=== PATIENT | female | born 1940 | race Caucasian/White ===

== ENCOUNTER 2017-07-15 10:52 | Emergency (ER) | payer OTHER, SELFPAY ==
[2017-07-15 10:54] VITALS: BP 150/51; PULSE 51; RESP 14; TEMP 37.1; O2SAT 98; BMI 39.6
--- NOTE | 2017-07-15 11:26 | ED.DCSUM_ITS ---
- ER Visit Summary Date of Service: 07/15/17 Chief Complaint: Nosebleed History of Present Illness: The patient is a 77 F who presents today with a nosebleed. It has been ongoing for couple of hours. She was recently started on Coumadin after an aortic valve replacement at the [facility]. This is her third episode of epistaxis in 3 days. She denies any trauma. No lightheadedness or dizziness. Physical Examination: Vital signs reviewed. HEENT exam reveals some bleeding from the left nares. It looks anterior. There is no trauma. No septal hematoma the rest the exam is unremarkable Test Results: INR was obtained and it was 2.1 Emergency Department Course and Treatment: Due to the amount of bleeding I immediately went to a 7.5 anterior Rhino Rocket. This was inflated and hemostasis was obtained with this. Treatment Plan: I will leave the Rhino Rocket in place. I will place her on Keflex. Patient will be given ENT follow-up for Rhino Rocket removal, or she can follow-up with her primary care physician. Disposition: Discharge Impression: Epistaxis This note was generated with [employer] dictation software. It may contain incorrect words, spelling, and punctuation that were not noted in review of the chart prior to signing ED Disposition - Plan for ED Patient: Chief Complaint: Nosebleed Referrals: Jarred Dominique MD [Primary Care Provider] -
[2017-07-15 12:13] LABS: International Normalized Ratio 2.1; Prothrombin Time (Protime)PT. 22.8 SECONDS (11.7-14.9)
--- NOTE | 2017-07-15 12:22 | ED.DEP ---
ED Disposition - Plan for ED Patient: Disposition: Home or Assisted Living Chief Complaint: Nosebleed Instructions: Nosebleed Prescriptions: Cephalexin [Keflex] 500 mg PO BID #10 cap Referrals: Jarred Dominique MD [Primary Care Provider] -
[2017-07-15 12:32] VITALS: BP 166/69; PULSE 59; RESP 16; O2SAT 96
--- NOTE | 2017-07-15 12:33 | ED.RN ---
REVIEWED D/C INSTRUCTIONS, FOLLOW UP CARE, PRESCRIPTION, AND S/S THAT WOULD WARRANT A RETURN TO ED WITH PT. PT VERBALIZED AN UNDERSTANDING AND DENIES FURTHER QUESTIONS FOR THIS RN. PT SKIN P/W/D, RESP EVEN AND UNLABORED, PT A&O X 3, NO DISTRESS NOTED. PT AMBULATED OUT OF ED, GAIT STEADY.
== END 2017-07-15 12:34 | disposition home or self-care (01) ==
PROVIDERS: Emergency Provider Emergency Medicine; Family Provider Family Medicine; PCP Family Medicine
DX: R04.0 Epistaxis (principal); Z95.2 Presence of prosthetic heart valve; Z79.01 Long term (current) use of anticoagulants; I11.0 Hypertensive heart disease with heart failure; I50.9 Heart failure, unspecified; Z79.82 Long term (current) use of aspirin; Z79.899 Other long term (current) drug therapy
CPT/HCPCS: 30903; 36415; 85610; 99282

== ENCOUNTER → 2019-03-14 08:22 | Outpatient (CLI) | payer OTHER, SELFPAY ==
[2019-02-23 08:38] VITALS: BMI 35.2
--- NOTE | 2019-03-14 08:24 | ECHOD_ITS ---
Reason For Study: Valve Replacement Eval Procedure This was a 2D Doppler, Color Flow transthoracic echocardiogram. Exam performed in department. Left Ventricle Normal LV size. Left ventricular systolic function is normal. The estimated ejection fraction is 45 %. Stage 1 diastolic dysfunction. No regional wall motion abnormalities noted. Right Ventricle Normal RV size. Normal systolic function. Atria Normal left atrium. Normal right atrium. Bubble contrast study negative for right to left interatrial shunt. Mitral Valve There is moderate to severe mitral annular calcification. Mild (1+) eccentric mitral valve insufficiency. Tricuspid Valve Normal tricuspid valve. Trivial tricuspid valve insufficiency. Aortic Valve Peak aortic valve gradient 33 mmHg. Mean aortic valve gradient 17 mmHg. Mild aortic stenosis. Bioprosthetic aortic valve. Great Vessels Normal aortic root. The pulmonary artery is normal size. Normal inferior vena cava. Pericardium/Pleural No pericardial effusion. Medication Performed a rapid injection of agitated mix of 9 cc saline and 1cc air to assess for atrial septal defect. MMode/2D Measurements & Calculations LVIDd: 4.7 cm IVSd: 1.1 cm LVOT diam: 1.8 cm LVIDs: 3.0 cm LVPWd: 0.85 cm LVOT area: 2.5 cm2 RVDd: 3.5 cm FS: 35.5 % Ao root diam: 3.3 cm LAV(MOD-bp): 58.1 ml LVAd ap4: 23.1 cm2 LAV(MOD-bp) Indexed: 30.1 ml/m2 EDV(MOD-sp4): 64.7 ml LAV(MOD-sp2): 51.1 ml EDV(sp4-el): 65.9 ml LAV(MOD-sp4): 63.8 ml LVAs ap4: 12.6 cm2 ESV(MOD-sp4): 24.5 ml ESV(sp4-el): 24.3 ml EF(MOD-sp4): 62.2 % EF(sp4-el): 63.2 % SV(MOD-sp4): 40.3 ml SV(sp4-el): 41.7 ml LA A4 area: 21.3 cm2 LA dimension(2D): 4.2 cm RA A4 area: 17.6 cm2 Doppler Measurements & Calculations MV E max vaibhav: 101.9 cm/sec Lat Peak E' Vaibhav: 6.9 cm/sec Med Peak E' Vaibhav: 4.5 cm/sec MV A max vaibhav: 125.6 cm/sec E/E' lat: 14.8 E/E' med: 22.9 MV E/A: 0.81 Ao V2 max: 290.4 cm/sec LV V1 max: 141.7 cm/sec SV(LVOT): 78.8 ml Ao max P.7 mmHg LV V1 max P.0 mmHg Ao V2 mean: 195.1 cm/sec LV V1 mean P.4 mmHg Ao mean P.2 mmHg LV V1 mean: 98.1 cm/sec Ao V2 VTI: 65.7 cm LV V1 VTI: 31.0 cm TONY(I,D): 1.2 cm2 TONY(V,D): 1.2 cm2 PA V2 max: 118.5 cm/sec TR max vaibhav: 233.5 cm/sec TR max P.8 mmHg Interpretation Summary Normal LV size. Left ventricular systolic function is normal. The estimated ejection fraction is 45 %. Stage 1 diastolic dysfunction. Bubble contrast study negative for right to left interatrial shunt. Bioprosthetic aortic valve. Mean aortic valve gradient 17 mmHg. Mild aortic stenosis. Ordering Physician: Jai Vega Referring Physician: Jarred Dominique Performed By: Iva Perez, GABBY, RVT
== END ==
PROVIDERS: Family Provider Family Medicine; PCP Family Medicine; Referring Provider Internal Medicine Cardiovascular Disease; Visit Provider Internal Medicine Cardiovascular Disease
DX: Z95.2 Presence of prosthetic heart valve (principal)
CPT/HCPCS: 93306; A4216

== ENCOUNTER → 2021-05-30 05:49 | Outpatient (CLI) | payer SELFPAY, OTHER ==
--- NOTE | 2021-05-30 06:05 | ECHOD_ITS ---
Version 2 Reason For Study: SOB Procedure This was a 2D Doppler, Color Flow transthoracic echocardiogram. Exam performed in department. Left Ventricle Normal LV size. Left ventricular systolic function is normal. The estimated ejection fraction is 65 %. Stage 1 diastolic dysfunction. No regional wall motion abnormalities noted. Right Ventricle Normal RV size. Normal systolic function. Atria The left atrium is mildly enlarged. Normal right atrium. Mitral Valve There is mild to moderate mitral annular calcification. Tricuspid Valve Normal tricuspid valve. Mild tricuspid valve insufficiency. Pulmonary artery systolic pressure is 25 mmHg. Aortic Valve Normal aortic valve. Trisinus/trileaflet aortic valve. Bioprosthetic aortic valve. Pulmonic Valve Normal pulmonic valve. Great Vessels Normal aortic root. The pulmonary artery is normal size. Normal inferior vena cava. Pericardium/Pleural No pericardial effusion. MMode/2D Measurements & Calculations LVIDd: 4.0 cm IVSd: 1.00 cm LVOT diam: 1.8 cm LVIDs: 2.8 cm LVPWd: 1.1 cm LVOT area: 2.4 cm2 RVDd: 3.2 cm FS: 31.8 % Ao root diam: 3.1 cm LAV(MOD-bp): 77.1 ml LVAd ap4: 27.6 cm2 LAV(MOD-bp) Indexed: 40.5 ml/m2 LVLd ap4: 7.1 cm LAV(MOD-sp2): 75.6 ml EDV(MOD-sp4): 90.8 ml LAV(MOD-sp4): 79.8 ml EDV(sp4-el): 90.6 ml LVAs ap4: 14.9 cm2 LVLs ap4: 6.1 cm ESV(MOD-sp4): 33.8 ml ESV(sp4-el): 30.8 ml EF(MOD-sp4): 62.7 % EF(sp4-el): 66.0 % SV(MOD-sp4): 57.0 ml SV(sp4-el): 59.8 ml LA A4 area: 23.9 cm2 LA dimension(2D): 4.2 cm RA A4 area: 15.0 cm2 Doppler Measurements & Calculations MV E max vaibhav: 103.6 cm/sec Lat Peak E' Vaibhav: 6.7 cm/sec Med Peak E' Vaibhav: 5.5 cm/sec MV A max vaibhav: 136.0 cm/sec E/E' lat: 15.4 E/E' med: 18.9 MV E/A: 0.76 MV V2 max: 157.2 cm/sec MV P1/2t max vaibhav: 121.2 cm/sec Ao V2 max: 265.2 cm/sec MV max P.9 mmHg MV P1/2t: 105.0 msec Ao max P.2 mmHg MV V2 mean: 88.9 cm/sec Ao V2 mean: 172.2 cm/sec MV mean P.6 mmHg MV dec slope: 338.1 cm/sec2 Ao mean P.5 mmHg MV V2 VTI: 45.6 cm MVA(P1/2t): 2.1 cm2 Ao V2 VTI: 55.9 cm MVA(VTI): 1.6 cm2 TONY(I,D): 1.3 cm2 TONY(V,D): 1.2 cm2 LV V1 max: 128.0 cm/sec SV(LVOT): 71.9 ml PA V2 max: 125.0 cm/sec LV V1 max P.6 mmHg LV V1 mean P.8 mmHg LV V1 mean: 92.6 cm/sec LV V1 VTI: 29.8 cm TR max vaibhav: 225.6 cm/sec TR max P.4 mmHg ECHO/Echo Complete Interpretation Summary Normal LV size. Left ventricular systolic function is normal. The estimated ejection fraction is 65 %. Stage 1 diastolic dysfunction. The left atrium is mildly enlarged. Compared to previous study, the left ventricular systolic function has improved .. Ordering Physician: Regi Hammonds/Jai Vega Referring Physician: Regi Hammonds Performed By: Annia Leyva RDCS
--- NOTE | 2021-05-30 18:47 | STRESSREP ---
Stress Test Report Exercise myocardial perfusion stress test. 80-year-old lady with a history of chest pain. Stress protocol: Resting EKG demonstrates sinus bradycardia with a rate of 59 bpm normal intervals are noted resting blood pressure is 138/70 mmHg. Patient exercised according to regular Kvng protocol for 3 minutes and 15 seconds the maximum heart rate attained was 139 bpm which was 97% of maximum predicted heart rate the maximum workload was 5.2 metabolic equivalents. The patient maintained sinus rhythm throughout the recording. At rest there were no ST or T wave changes noted suggest ischemia and at peak exercise upsloping ST changes were noted with did not meet the criteria for ischemia. No clinical angina was noted. The resting blood pressure was 138/70 with a peak blood pressure 198/62 mmHg. The patient did not experience any symptoms other than shortness of breath. Myocardial perfusion protocol. 11.4 mCi of technetium 99m sestamibi was injected at rest. The patient exercised according to regular Kvng protocol for total duration of 3 minutes and 15 seconds. At peak exercise 33.9 mCi of technetium 99m sestamibi was injected after. Stress and rest images were reconstructed in comparing the short axis vertical long and horizontal long axis. Gated images were also obtained. Perfusion SPECT analysis: Review of the stress images demonstrate normal uptake of tracer noted in all areas of the myocardium. The resting images similarly demonstrate normal uptake of tracer noted in all areas of the myocardium. No areas of reversibility are noted to suggest ischemia and no previous infarct noted. Gated SPECT analysis: The gated ejection fraction is 72%. Conclusion: Normal exercise myocardial perfusion stress test after low to moderate workload. Preserved ejection fraction
== END ==
PROVIDERS: PCP Family Medicine; Referring Provider Physician Assistant Medical; Visit Provider Physician Assistant Medical
DX: R07.9 Chest pain, unspecified (principal); R06.02 Shortness of breath; I42.8 Other cardiomyopathies; I10 Essential (primary) hypertension; Z95.2 Presence of prosthetic heart valve
CPT/HCPCS: 78452; 93017; 93306; A9500; A4216

== ENCOUNTER → 2024-01-14 | Outpatient (CLI) | payer SELFPAY, OTHER ==
--- NOTE | 2024-01-14 09:54 | CDU_ITS ---
Reason For Study: Retinal Artery occlusion Rt. Velocities/BP Lt. Velocities/BP Prox CCA 62.0/6.2 cm/sec. Prox CCA 86.7/20.4 cm/sec. Mid CCA 72.4/14.7 cm/sec. Mid CCA 81.8/15.5 cm/sec. Dist CCA 73.2/15.5 cm/sec. Dist CCA 54.8/14.2 cm/sec. Prox ICA 100.2/33.9 cm/sec. Prox ICA 79.3/20.4 cm/sec. Mid ICA 101.4/32.7 cm/sec. Mid ICA 101.4/29.0 cm/sec. Dist ICA 84.3/28.2 cm/sec. Dist ICA 92.8/30.2 cm/sec. Rt. ICA/CCA = 1.4. Lt. ICA/CCA = 1.2. Prox ECA 279.9/24.6 cm/sec. Prox ECA 99.0/11.8 cm/sec. Rt. Vert. 33.9/8.3 cm/sec. Lt. Vert. 44.9/10.6 cm/sec. Right Extracranial There is intimal thickening but no significant atherosclerotic plaque noted in the right common carotid artery. Anechoic non-vascularized structure measuring approximately 1.71cm x 0.87cm noted in Rt Thyroid. There is heterogeneous, irregular atherosclerotic plaque noted in the right internal carotid artery. There is heterogeneous, irregular atherosclerotic plaque noted in the right external carotid artery. Antegrade flow is noted in the right vertebral artery. Left Extracranial There is homogeneous, smooth atherosclerotic plaque noted in the left common carotid artery. There is heterogeneous, irregular atherosclerotic plaque noted in the left internal carotid artery. There is heterogeneous, irregular atherosclerotic plaque noted in the left external carotid artery. Antegrade flow is noted in the left vertebral artery. Procedure Carotid Duplex 80077. This is a Carotid Duplex examination using B-mode, color flow and specral Doppler. The exam was diagnostic. Exam performed in department. VL/Carotid Duplex Ultrasound Interpretation Summary Mild (<50%) stenosis right extracranial internal carotid. Mild (<50%) stenosis left extracranial internal carotid. Patent and antegrade vertebrals bilaterally. Anechoic non-vascularized structure measuring approximately 1.71cm x 0.87cm not ed in right thyroid Ordering Physician: Arsalan Abdullahi Referring Physician: Jarred Dominique Performed By: Rome Cm RVT
== END | disposition home or self-care (01) ==
PROVIDERS: PCP Family Medicine; Referring Provider Ophthalmology; Visit Provider Ophthalmology
DX: H34.211 Partial retinal artery occlusion, right eye (principal)
CPT/HCPCS: 93880

== ENCOUNTER → 2024-02-29 | Outpatient (CLI) | payer SELFPAY, OTHER ==
--- NOTE | 2024-02-29 12:34 | US_ITS ---
EXAM: US SOFT TISSUES HEAD AND NECK, THYROID CLINICAL INDICATION: thyroid cyst seen on carotid exam TECHNIQUE: Greyscale and color doppler imaging was performed of the thyroid gland. COMPARISON: Carotid ultrasound, 01/14/2024. FINDINGS: LEFT THYROID LOBE: The left thyroid lobe measures 4.9 x 1.4 x 1.4 cm. Homogeneous echotexture with normal vascularity. No thyroid nodules are present. RIGHT THYROID LOBE: The right thyroid lobe measures 5.2 x 2.2 x 2.0 cm. Right mid thyroid lobe cyst measuring 1.5 cm. 1.0 cm nodule in the right thyroid lobe. This nodule is solid or almost completely solid, hypoechoic, [id number], ill-defined and contains no echogenic foci. TI-RADS points: 4. TI-RADS category: TR4. This nodule is moderately suspicious. Recommend follow-up thyroid ultrasounds at 1, 2, 3 and 5 years. Spongiform nodule measuring 5 mm in the right upper thyroid lobe. ISTHMUS: No significant abnormality. No thyroid nodules are present. The thyroid isthmus measures 0.3 cm. US/Thyroid IMPRESSION: 1 cm right thyroid nodule. No FNA is recommended at this time. Recommend follow-up ultrasound in 1, 2, 3, and 5 years. Electronically Signed: Kale Marshall DO at 21:41 EDT ,
--- NOTE | 2024-02-29 12:34 | ECHOD_ITS ---
Reason For Study: PROSTHETIC HEART VALVE Procedure This was a 2D Doppler, Color Flow transthoracic echocardiogram. Exam performed in department. Left Ventricle Normal LV size. Left ventricular systolic function is normal. The left ventricular ejection fraction is 70 %. No regional wall motion abnormalities noted. Right Ventricle Normal RV size. Normal systolic function. Atria The left atrium is mildly enlarged. Normal right atrium. Mitral Valve Normal mitral valve. Tricuspid Valve Normal tricuspid valve. Mild (1+) tricuspid valve insufficiency. Pulmonary artery systolic pressure is 25 mmHg. Aortic Valve Peak aortic valve gradient 26 mmHg. Mean aortic valve gradient 14 mmHg. Bioprosthetic aortic valve functioning normally. Pulmonic Valve Normal pulmonic valve. Great Vessels Normal aortic root. The pulmonary artery is normal size. Normal inferior vena cava. Pericardium/Pleural No pericardial effusion. MMode/2D Measurements & Calculations LVIDd: 4.7 cm IVSd: 0.98 cm LVOT diam: 1.8 cm LVIDs: 2.5 cm LVPWd: 1.2 cm LVOT area: 2.7 cm2 RVDd: 2.8 cm FS: 47.1 % LAV(MOD-bp): 81.3 ml LVAd ap4: 24.9 cm2 SV(MOD-sp4): 52.2 ml LAV(MOD-bp) Indexed: 43.8 ml/m2 LVLd ap4: 6.9 cm LAV(MOD-sp2): 79.3 ml EDV(MOD-sp4): 75.0 ml LAV(MOD-sp4): 73.4 ml EDV(sp4-el): 76.1 ml LVAs ap4: 12.4 cm2 LVLs ap4: 5.7 cm ESV(MOD-sp4): 22.8 ml ESV(sp4-el): 23.0 ml EF(MOD-sp4): 69.6 % EF(sp4-el): 69.8 % SV(sp4-el): 53.1 ml LA A4 area: 22.9 cm2 LA dimension(2D): 4.3 cm RA A4 area: 17.3 cm2 Time Measurements MV dec time: 0.54 sec Doppler Measurements & Calculations MV E max vaibhav: 109.3 cm/sec Lat Peak E' Vaibhav: 14.2 cm/sec Med Peak E' Vaibhav: 6.3 cm/sec MV A max vaibhav: 139.7 cm/sec E/E' lat: 7.7 E/E' med: 17.5 MV E/A: 0.78 MV V2 max: 177.1 cm/sec Ao V2 max: 257.4 cm/sec MV max P.6 mmHg MV dec slope: 208.6 cm/sec2 Ao max P.5 mmHg MV V2 mean: 91.4 cm/sec Ao V2 mean: 175.7 cm/sec MV mean P.0 mmHg Ao mean P.4 mmHg MV V2 VTI: 58.3 cm Ao V2 VTI: 58.8 cm AV (velocity ratio): 0.72 MVA(VTI): 2.0 cm2 TONY(I,D): 1.9 cm2 TONY(V,D): 1.8 cm2 LV V1 max: 170.0 cm/sec SV(LVOT): 114.2 ml PA V2 max: 137.1 cm/sec LV V1 max P.6 mmHg PA V2 mean: 85.7 cm/sec LV V1 mean P.3 mmHg LV V1 mean: 128.3 cm/sec LV V1 VTI: 42.6 cm PI end-d vaibhav: 105.3 cm/sec TR max vabihav: 230.6 cm/sec TR max P.3 mmHg ECHO/Echo Complete Interpretation Summary Normal LV size. Left ventricular systolic function is normal. The left ventricular ejection fraction is 70 %. Bioprosthetic aortic valve functioning normally. Mean aortic valve gradient 14 mmHg. Ordering Physician: Regi Hammonds Referring Physician: Regi Hammonds Performed By: Katherine Chau RCS
== END | disposition home or self-care (01) ==
PROVIDERS: PCP Family Medicine; Referring Provider Physician Assistant Medical; Visit Provider Physician Assistant Medical
DX: E04.1 Nontoxic single thyroid nodule (principal); Z95.2 Presence of prosthetic heart valve
CPT/HCPCS: 76536; 93306

== ENCOUNTER → 2025-05-03 | Outpatient (CLI) | payer SELFPAY, OTHER ==
--- NOTE | 2025-05-03 06:23 | ECHOD_ITS ---
Reason For Study Reason For Study: PROSTHETIC HEART VALVE (av) Procedure This was a 2D Doppler, Color Flow transthoracic echocardiogram. Exam performed in department. Left Ventricle Normal LV size. Left ventricular systolic function is normal. The estimated ejection fraction is 50 %. No regional wall motion abnormalities noted. Right Ventricle Normal RV size. Normal systolic function. Atria Normal left atrium. Normal right atrium. Mitral Valve Normal mitral valve. Tricuspid Valve Normal tricuspid valve. Mild (1+) tricuspid valve insufficiency. Pulmonary artery systolic pressure is 25 mmHg. Aortic Valve Peak aortic valve gradient 29 mmHg. Mean aortic valve gradient 15 mmHg. Bioprosthetic aortic valve. Pulmonic Valve Normal pulmonic valve. Great Vessels Normal aortic root. The pulmonary artery is normal size. Inferior vena cava collapse with respiration. Pericardium/Pleural No pericardial effusion. MMode/2D Measurements & Calculations LVIDd: 4.6 cm IVSd: 1.0 cm LVOT diam: 1.8 cm LVIDs: 3.2 cm LVPWd: 1.0 cm LVOT area: 2.6 cm2 RVDd: 2.9 cm FS: 30.9 % Ao root diam: 2.8 cm LAV(MOD-bp): 63.8 ml LVAd ap4: 26.8 cm2 LAV(MOD-bp) Indexed: 35.5 ml/m2 LVLd ap4: 7.3 cm LAV(MOD-sp2): 75.6 ml EDV(MOD-sp4): 82.7 ml LAV(MOD-sp4): 49.2 ml EDV(sp4-el): 83.5 ml LVAs ap4: 17.1 cm2 LVLs ap4: 5.8 cm ESV(MOD-sp4): 43.8 ml ESV(sp4-el): 42.7 ml EF(MOD-sp4): 47.0 % EF(sp4-el): 48.9 % LVAd ap2: 24.6 cm2 SV(MOD-sp4): 38.8 ml SV(MOD-sp2): 35.3 ml LVLd ap2: 7.1 cm SI(MOD-sp4): 21.6 ml/m2 SI(MOD-sp2): 19.6 ml/m2 EDV(MOD-sp2): 73.0 ml EDV(sp2-el): 72.9 ml LVAs ap2: 17.3 cm2 LVLs ap2: 6.4 cm ESV(MOD-sp2): 37.8 ml ESV(sp2-el): 39.4 ml EF(MOD-sp2): 48.3 % SV(sp4-el): 40.8 ml LA dimension(2D): 4.1 cm LA A4 area: 17.4 cm2 RA A4 area: 13.5 cm2 TAPSE: 1.8 cm Time Measurements MV dec time: 0.33 sec Doppler Measurements & Calculations MV E max vaibhav: 144.3 cm/sec Lat Peak E' Vaibhav: 15.6 cm/sec Med Peak E' Vaibhav: 4.9 cm/sec MV A max vaibhav: 135.9 cm/sec E/E' lat: 9.3 E/E' med: 29.4 MV E/A: 1.1 MV V2 max: 175.1 cm/sec MV P1/2t max vaibhav: 155.8 cm/sec Ao V2 max: 272.2 cm/sec MV max P.4 mmHg MV P1/2t: 95.6 msec Ao max P.8 mmHg MV V2 mean: 91.3 cm/sec Ao V2 mean: 186.3 cm/sec MV mean P.0 mmHg MV dec slope: 477.6 cm/sec2 Ao mean P.4 mmHg MV V2 VTI: 60.6 cm MVA(P1/2t): 2.3 cm2 Ao V2 VTI: 66.3 cm AV (velocity ratio): 0.65 MVA(VTI): 1.9 cm2 TONY(I,D): 1.7 cm2 TONY(V,D): 1.6 cm2 LV V1 max: 165.7 cm/sec MR max vaibhav: 578.9 cm/sec SV(LVOT): 112.5 ml LV V1 max P.0 mmHg MR max P.1 mmHg LV V1 mean P.2 mmHg LV V1 mean: 118.1 cm/sec LV V1 VTI: 42.9 cm PA V2 max: 119.7 cm/sec PI dec slope: 106.0 cm/sec2 TR max vaibhav: 222.8 cm/sec TR max P.5 mmHg ECHO/Echo Complete Interpretation Summary Normal LV size. Left ventricular systolic function is normal. The estimated ejection fraction is 50 %. Mean aortic valve gradient 15 mmHg. Bioprosthetic aortic valve. Ordering Physician: Tara Ruiz Referring Physician: Daisy Clark Performed By: Odalis Colon RDCS, RVT
--- OUTSIDE RECORDS SUMMARY | 2025-05-03 06:25 | XMS RPT_ITS | CCD ---
Author Organization [facility] Care Team Providers Care Principal Software Engineer Name Role Phone MAN, ZORA E Unavailable Unavailable MAN, ZORA E Unavailable Unavailable MAN, ZORA E Unavailable Unavailable JARRED DOMINIQUE WINCIL Unavailable Unavailable MAN, ZORA E Unavailable Unavailable MAN, ZORA E Unavailable Unavailable MAN, ZORA E Unavailable Unavailable MAN, ZORA E Unavailable Unavailable MAN, ZORA E Unavailable Unavailable MAN, ZORA E Unavailable Unavailable MAN, ZORA Unavailable Unavailable IMCA Unavailable Unavailable MAN, ZORA Unavailable Unavailable MAN, ZORA Unavailable Unavailable MAN, ZORA Unavailable Unavailable MAN, ZORA Unavailable Unavailable IMCA Unavailable Unavailable MAN, ZORA Unavailable Unavailable MAN, ZORA Unavailable Unavailable IMCA Unavailable Unavailable MAN, ZORA Unavailable Unavailable MAN, ZORA Unavailable Unavailable Jarred Dominique DO Primary Care Provider Julia Martin MD Unavailable [phone] JARRED DOMINIQUE Primary Care Unavailable LUIS FERNANDO CALIX Referring Unavailable JARRED DOMINIQUE Primary Care Unavailable LUIS FERNANDO CALIX Attending Unavailable Eduardo RENDON, Daisy Valencia Referring Unavailkeon Clark NP, Daisy Valencia Primary Care Unavailkeon Ruiz NP, Tara Attending Unavailable Silvia, [place] Attending Unavailable Jarred Dominique Referring Unavailable Jarred Dominique Primary Care Unavailable Joseph RENDON, Tara Attending Unavailable Eduardo RENDON, Daisy Valencia Primary Care UnavailTara Felix NP Referring Unavailable Allergies Allergy Classification Reported Allergen(s) Allergy Type Date of Onset Reaction(s) Facility (6 sources) Adhesive Tape; Translations: [ADHESIVE TAPE (ROSINS)] Propensity to adverse reactions (disorder) 8 Rash [facility] Repository (2 sources) NO KNOWN ALLERGIES; Translations: [NO KNOWN ALLERGIES] Propensity to adverse reactions to drug (disorder) [facility] Repository (1 source) Adhesive Tape Drug allergy (disorder) [facility] Repository Medications Current Medications Medication Drug Class(es) Dates Sig (Normalized) Sig (Original) acetaminophen 325 mg oral tablet (1 source) Start: 07-02-2017 End: 12-09-2024 take 2 tablets by mouth every four hours as needed acetaminophen (TYLENOL) 325 mg tablet Take 2 tablets by mouth every 4 hours as needed (for mild pain. Do not exceed more than 3000mg of Tylenol in a 24 hour period.). 07/02/2017 12/09/2024 Discontinued Aloe Vera gel (3 sources) Aloe Vera gel Apply 1 application to affected area once daily. Active aspirin 81 mg delayed release oral tablet (3 sources) Platelet Aggregation Inhibitor, Nonsteroidal Anti-inflammatory Drug Start: 10-28-2017 take 1 tablet by mouth once daily aspirin, enteric coated (ASPIR-LOW) 81 mg EC tablet Take 1 tablet by mouth once daily. 10/28/2017 Active cephalexin 500 mg oral capsule (2 sources) Cephalosporin Antibacterial Start: 12-09-2024 End: 12-14-2024 take 1 capsule by mouth four times daily cephALEXin (KEFLEX) 500 mg capsule Indications: Avulsion of skin of index finger without complication, initial encounter Take 1 capsule by mouth four times daily for 5 days. 20 capsule 12/09/2024 12/14/2024 Active docusate sodium 50 mg / sennosides, shelter 8.6 mg oral tablet (1 source) Start: 07-02-2017 End: 12-09-2024 take 1 tablet by mouth every twelve hours as needed senna-docusate (SENNA-S) 8.6-50 mg per tablet Take 1 tablet by mouth twice daily as needed for Constipation. 07/02/2017 12/09/2024 Discontinued lisinopril 5 mg oral tablet (3 sources) Angiotensin Converting Enzyme Inhibitor Start: 05-04-2018 take 1 tablet by mouth once daily lisinopril (ZESTRIL, PRINIVIL) 5 mg tablet Take 1 tablet by mouth once daily. 90 tablet 3 05/04/2018 Active osmotic 24 hr metFORMIN hydrochloride 500 mg extended release oral tablet (3 sources) Biguanide take 1 tablet by mouth once daily at breakfast metFORMIN ER (FORTAMET) 500 mg 24 hr tablet Take 500 mg by mouth daily with breakfast. Active Multivitamin capsule (3 sources) take 1 capsule by mouth once daily Multivitamin capsule Take 1 capsule by mouth once daily. Active SITagliptin 100 mg oral tablet (1 source) Dipeptidyl Peptidase 4 Inhibitor Start: 07-03-2017 End: 12-09-2024 take 1 tablet by mouth once daily sitaGLIPtin (JANUVIA) 100 mg tablet Take 1 tablet by mouth once daily. 30 tablet 1 07/03/2017 12/09/2024 Discontinued Completed/Discontinued Medications Medication Drug Class(es) Dates Sig (Normalized) Sig (Original) Lidocaine (2 sources) Antiarrhythmic, Amide Local Anesthetic Start: 12-09-2024 End: 12-09-2024 lidocaine 20 mg/mL (2 %) 60 mg injection (XYLOCAINE) Start: 12-09-2024 End: 12-09-2024 60 mg, INTRADERMAL, ONCE, 1 dose, Starting on Thu12/09/24 at 0928, Until Thu12/09/24 at 0928 Problems Active Problems Problem Classification Problem Date Documented Da te Episodic/Chronic Cardiac dysrhythmias (7 sources) Paroxysmal atrial fibrillation; Translations: [Paroxysmal atrial fibrillation] Onset: 2017 Resolved: 06-30-2017 07-02-2017 Chronic Heart valve disorders (8 sources) Presence of prosthetic heart valve; Translations: [Nonrheumatic aortic (valve) stenosis] Onset: 04-16-2017 07-02-2017 Chronic Occlusion or stenosis of precerebral arteries (1 source) Occlusion and stenosis of unspecified carotid artery; Translations: [Occlusion and stenosis of unspecified carotid artery] Onset: 05-25-2017 Chronic Open wounds of extremities (5 sources) Avulsion of skin; Translations: [Unspecified open wound of other finger without damage to nail, initial encounter] Onset: 12-10-2024 12-09-2024 Episodic Other nutritional; endocrine; and metabolic disorders (3 sources) Body mass index 40+ - severely obese; Translations: [Obesity, Class III, BMI 40-49.9 (morbid obesity)] Onset: 06-25-2017 07-01-2017 Chronic Unclassified (1 source) Unknown / UNK(Unknown) Onset: 04-16-2017 Past or Other Problems Problem Classification Problem Date Documented Date Episodic/Chronic Administrative/social admission (3 sources) Discharge status; Translations: [Other problems related to medical facilities and other health care] Onset: 06-25-2017 07-02-2017 Episodic Complications of surgical procedures or medical care (3 sources) Postoperative hypertension; Translations: [Postprocedural hypertension] Onset: 06-27-2017 07-02-2017 Episodic Diabetes mellitus without complication (3 sources) Metabolic stress hyperglycemia; Translations: [Hyperglycemia, unspecified] Onset: 06-26-2017 07-02-2017 Episodic Fluid and electrolyte disorders (3 sources) Hypervolemia; Translations: [Fluid overload, unspecified] Onset: 06-27-2017 07-02-2017 Episodic Other lower respiratory disease (1 source) Other forms of dyspnea; Translations: [Other forms of dyspnea] Onset: 04-16-2017 Episodic Pleurisy; pneumothorax; pulmonary collapse (3 sources) Atelectasis; Translations: [Atelectasis] Onset: 06-27-2017 Resolved: 07-01-2017 07-01-2017 Episodic Residual codes; unclassified (3 sources) Transition of care; Translations: [Other specified health status] Onset: 06-30-2017 07-02-2017 Episodic Results Test Name Value Interpretation Reference Range Facility Cardiology Visit Reporton Cardiology Visit Report [facility] [address] [place] [address]. [address] [place] [address] OFFICE VISIT Date of Service: 04/10/25 MR#: [id number] Acct: [id number] Name: CIERA WELLS Rep #: [id number] : 1940 Provider: JOSE vaca Age/Sex: 84/F Location: [facility] Status: Signed HPI HPI History of Present Illness Details: Ciera Wells is an 84-year-old lady who presents to the office today for a cardiovascular follow-up visit. She has a history of aortic stenosis, status post aortic valve replacement with a #21 Nicola Dueñas valve at the [facility] in June 2017, a short episode of postop atrial fibrillation and hypertension. She did undergo a stress test in May 2021 with no evidence of ischemia at a moderate workload of 5.2 metabolic equivalents. An echocardiogram performed at that same time demonstrated an ejection fraction of 65% with no wall motion abnormalities noted. Aortic valve prosthesis was noted to be stable. From a cardiac standpoint, the patient is doing well. She denies any palpitations, chest pain, pressure or heaviness. She denies SOB, Orthopnea, and PND. She does not have bleeding issues; no blood in urine, stool, or nosebleeds. She denies any decrease in energy level, myalgias, or claudication. She does not have edema, or sudden weight gain. She denies lightheadedness, dizziness, syncopal or near syncopal episodes, and headaches. Intake Vital Signs 02/15/24 08:30 04/10/25 07:40 Height 5 ft 3 in 5 ft 3 in Weight: 168 lb BMI 29.7 BP 135/72 H Blood Pressure Location Lt brachial Position Sitting Respiration 18 Pulse 56 L Pulse Source Monitor Pulse Oximetry (%) 98 Intake Visit Reasons: 1 Y FU Police Crime Scene Technician Required: No Is patient in pain?: No Allergies adhesive tape (tape) Allergy (Verified 04/10/25 13:46) Rash Medications ???Medication ???Instructions ???Recorded ???Confirmed ???Type garlic 1,000 mg capsule 1,000 mg PO QPC 02/23/19 04/10/25 History vitamin A-vitamin C-vit E-min 1 tab PO DAILY 02/23/19 04/10/25 H istory tablet Blood Pressure Health PO DAILY 05/16/20 04/10/25 History cholecalciferol (vitamin D3) 25 25 mcg PO DAILY 05/16/20 04/10/25 History mcg (1,000 unit) capsule zinc 50 mg tablet 50 mg PO DAILY 05/16/20 04/10/25 H istory aspirin 81 mg tablet,delayed 81 mg PO DAILY 05/15/21 04/10/25 H istory release (Adult Aspirin Regimen) lisinopril 20 mg tablet 20 mg PO DAILY 02/18/22 04/10/25 H istory metformin 500 mg tablet 500 mg PO QDAY 02/15/24 04/10/25 H istory Ejection fraction %: 70 Have you fallen in the past year?: Yes PFSH Medical History Non-ischemic cardiomyopathy Bleeding nose Type 2 diabetes mellitus Obesity Essential (primary) hypertension Postoperative atrial fibrillation (06/2017) Non-rheumatic aortic stenosis Surgical History History of left heart catheterization (05/14/17) H/O aortic valve replacement (06/26/17) Social History Smoking Status: Never smoker ROS Const Const: Negative for fatigue, weakness, headache(s) or frequent falls Eyes Eyes: Negative for blurry vision ENT ENT: Negative for headache(s), dizziness or Nosebleed/epistaxis Cardio Chest Pain: No Palpitations: No Edema: None Muscle aches with walking: None Resp Respiratory: Negative for SOB with activity, SOB at rest or SOB orthopnea SOB lying down GI GI: Negative nausea, vomiting, heartburn, bright, red blood in stools or black,tarry stools : Negative for hematuria Neuro Neuro: Negative for dizziness, lightheadedness, near syncope, syncope, frequent falls, headache(s), weakness or blurry vision Endo Endo: Negative for fatigue Cardiology Exam Const Appearance: cooperative, healthy appearing, comfortable, no acute distress and well developed Nutritional Appearance: overweight Orientation: alert, awake and oriented x3 Head Head: normal to inspection Ears: hearing grossly normal bilaterally Nose: external nose normal Face and Sinus: face symmetric Eyes General: appearance normal, both eyes and all related structures Eyelids: eyelids normal Conjunctivae: conjunctivae normal Pupils: PERRL EOM: EOM intact bilaterally Neck Neck: normal visual inspection and trachea midline; Negative no JVD Carotids: Negative bruit Chest Chest inspection: normal inspection of the chest Auscultation: Bilateral: Clear to Auscultation Cardio Palpation: normal PMI Rate: bradycardic Rhythm: regular rhythm Heart sounds: S1 normal, S2 normal and murmur; Negative rub or gallop Murmur: Grade 2/6, harsh and mid systolic GI GI: normal to inspec (more content not included)... Normal [facility] XR DIGIT 3V FRONTAL/LAT/OBL RTon 12-10-2024 XR DIGIT 3V FRONTAL/LAT/OBL RT * * *Final Report* * * DATE OF EXAM: Dec 10 2024 8:17AM WOX [id number] - XR DIGIT 3V FRONTAL/LAT/OBL RT / PROCEDURE REASON: Avulsion of skin of index finger without complication, initial encounter * * * * Physician Interpretation * * * * XR DIGIT 3V FRONTAL/LAT/OBL RT INDICATION: Avulsion of skin of index finger without complication, initial encounter COMPARISON: None. TECHNIQUE: Right second finger radiograph; 3 views RESULT: Soft tissue swelling overlying the distal aspect of the right second finger. Small bone fragment arising from the dorsal base of the distal phalanx, likely avulsion extensor tendon. Degenerative changes of the distal interphalangeal joint. IMPRESSION: Bone fragment at the dorsal distal interphalangeal joint, likely extensor tendon avulsion injury. Gate Agent: [facility] Transcribe Date/Time: Dec 10 2024 9:03A Dictated by : JAVID WHEELER MD This examination was interpreted and the report reviewed and electronically signed by: JAVID WHEELER MD on Dec 10 2024 9:08AM EST [id number] Normal [facility] XR Finger - right AP and Lat eral and obliqueon 12-10-2024 IMPRESSION: Bone fragment at the dorsal distal interphalangeal joint, likely extensor tendon avulsion injury. Gate Agent: [facility] Transcribe Date/Time: Dec 10 2024 9:03A Dictated by : JAVID WHEELER MD This examination was interpreted and the report reviewed and electronically signed by: JAVID WHEELER MD on Dec 10 2024 9:08AM EST DIVISION OF RADIOLOGY * * *Final Report* * * DATE OF EXAM: Dec 10 2024 8:17AM WOX [id number] - XR DIGIT 3V FRONTAL/LAT/OBL RT / PROCEDURE REASON: Avulsion of skin of index finger without complication, initial encounter * * * * Physician Interpretation * * * * XR DIGIT 3V FRONTAL/LAT/OBL RT INDICATION: Avulsion of skin of index finger without complication, initial encounter COMPARISON: None. TECHNIQUE: Right second finger radiograph; 3 views RESULT: Soft tissue swelling overlying the distal aspect of the right second finger. Small bone fragment arising from the dorsal base of the distal phalanx, likely avulsion extensor tendon. Degenerative changes of the distal interphalangeal joint. DIVISION OF RADIOLOGY Provider, [facility] - 12/10/2024 * * *Final Report* * * DATE OF EXAM: Dec 10 2024 8:17AM WOX [id number] - XR DIGIT 3V FRONTAL/LAT/OBL RT / PROCEDURE REASON: Avulsion of skin of index finger without complication, initial encounter * * * * Physician Interpretation * * * * XR DIGIT 3V FRONTAL/LAT/OBL RT INDICATION: Avulsion of skin of index finger without complication, initial encounter COMPARISON: None. TECHNIQUE: Right second finger radiograph; 3 views RESULT: Soft tissue swelling overlying the distal aspect of the right second finger. Small bone fragment arising from the dorsal base of the distal phalanx, likely avulsion extensor tendon. Degenerative changes of the distal interphalangeal joint. IMPRESSION IMPRESSION: Bone fragment at the dorsal distal interphalangeal joint, likely extensor tendon avulsion injury. Gate Agent: [facility] Transcribe Date/Time: Dec 10 2024 9:03A Dictated by : JAVID WHEELER MD This examination was interpreted and the report reviewed and electronically signed by: JAVID WHEELER MD on Dec 10 2024 9:08AM EST [facility] Radiology Study observation (narrative) [facility] XR Finger - right AP and Lat eral and obliqueOrdered By: [facility]cf Provider on 12-10-2024 [facility] CNOVon 12-09-2024 CNOV Office Visit (WSTR ) CIERA WELLS ([id number]) 1940 F Date Time Provider Department 12/09/24 8:15 AM LUIS FERNANDO CALIX WSTR During your visit today, we recorded the following information about you: Temperature Pulse Respiration Blood pressure 96.6 degrees 60/minute 20/minute 138/64 Weight 78.8 kg Luis Fernando Calix MD 12/09/2024 8:47 AM Addendum Call [facility] at [phone]. Luis Fernando Calix MD 12/09/2024 10:46 AM Addendum [facility] Subjective Ciera Wells is a 84 year old female. Patient presents with: Trauma: Got right hand pointer finger stuck in washer ringer x 1 day Patient got her right index finger caught in a closed finger last night. She has loose skin at the fingertip she thinks needs to be removed. She has washed the finger and dressed it with some cream and jelly. She cannot bend the tip of her finger because of the dressing but only notices pain when applying the gels. Current blood thinner is aspirin. Trauma Review of Systems Objective BP 138/64 Pulse 60 Temp (!) 35.9 ?C (96.6 ?F) Resp 20 Wt 78.8 kg (173 lb 11.6 oz) SpO2 98% BMI 32.82 kg/m? Physical Exam Constitutional: General: She is not in acute distress. Comments: Accompanied by her daughter. Musculoskeletal: Hands: Comments: [id number]-[id number]. 5 cm Y-shaped laceration avulsion from degloving injury. Laceration originates at the thenar DIP joint return extends to the palmar aspect. There is avulsion of tissue from the ulnar aspect of the lateral nail fold to the mid middle phalange. White severed 1 mm presumed nerve present in the avulsion on the ulnar aspect of the DIP joint. Normal strength with flexion and extension at the DIP and PIP joints. No laxity with varus or valgus strain of the DIP joint. Neurological: Mental Status: She is alert. {ASSESSMENT/PLAN: 1. Avulsion of skin of index finger without complication, initial encounter - ICD9: 883.0, ICD10: S61.208A I was able to reapproximate 3 cm of wound on the ulnar aspect of the index finger. The residual finger pad was edematous but had good perfusion. - XR DIGIT GENERAL 3V FRONTAL/LAT/OBL RIGHT -x-ray is not available today. Patient will return tomorrow for imaging to rule out fracture. - CEPHALEXIN 500 MG CAPSULE for possible open fracture. Advised to schedule follow-up with wound care at the [facility]. Change dressing daily. Seek re-evaluation for sign of infection such as spreading redness, warmth, pus-like discharge, increasing pain, or fever. Advised suture removal in 1-2 weeks-preferably through wound care clinic. Luis Fernando Calix MD Differential Diagnoses - Degloving injury of right index finger Laceration Procedure: right index finger Date/Time: 12/09/2024 9:28 AM Performed by: Luis Fernando Calix MD Authorized by: Luis Fernando Calix MD Informed Consent Consent Obtained: Verbal [place] Protocol A moment to CARE was completed. SIGN IN Personnel directly involved with the procedure wore the appropriate PPE. Special Equipment: N/A Patient/Surrogate Stated/Verified: Patient name, Date of , Relevant allergies and Intended procedure TIME OUT Medications required for procedure verified. Laceration Repair Body area: upper extremity Location details: right index finger Laceration length: 5 cm Foreign bodies: no foreign bodies Tendon involvement: none Nerve involvement: superficial Vascular damage: no Irrigation solution: saline Irrigation method: syringe Amount of cleaning: standard Debridement: none Degree of undermining: none Skin closure: Ethilon (5-0) Number of sutures: 3 Approximation: loose Approximation difficulty: simple Dressing: antibiotic ointment, non-adhesive packing strip, gauze roll and splint Patient tolerance: patient tolerated the procedure well with no immediate complications SIGN OUT No specimen collected. All instruments, equipment, possible retained foreign bodies accounted for. The post-procedure POC has been communicated to the patient or surrogate. Medications: 60 mg lidocaine 20 mg/mL (2 %) Allergies As of Date: 12/09/2024 Noted Allergy Reaction TAPE (ADHESIVE TAPE (ROSINS)) 06/26/2017 2 - Rash Date Reviewed: 12/09/2024 Reviewed by: Emerita Landa MA - Fully Assessed Reason for Visit: Trauma [112] Cmt: Got right hand pointer finger stuck in washer ringer x 1 day Primary Visit Diagnosis:Avulsion of skin of index finger without complication, initial encounter [S61.208A] Order(s):XR DIGIT GENERAL 3V FRONTAL/LAT/OBL RIGHT [[id number]] Order #: [id number] FUTURE cephALEXin (KEFLEX) 500 mg capsuleTake 1 capsule by mouth four times daily for 5 days.Disp: 20 capsuleRfl: 0 Laceration Procedure: right index finger [VXO020] Order #: [id number] [] lidocaine 20 mg/mL (2 %) 60 (more content not included)... Normal [facility] Laceration Procedure: right index fingeron 12-09-2024 [facility] CNOVon 10-28-2017 CNOV Office Visit (AGCARDWST) MARCO ANTONIO WELLS ([id number]) 1940 FDate Time Provider Department10/28/17 10:30 AM ZORA CONWAY AGCARDWST During your visit today, we recorded the following information about you: Pulse Blood pressure Weight 64/minute 148/75 98.6 kgZora Conway MD 10/29/2017 12:36 PM SignedPERTINENT CARDIAC HISTORYAortic stenosis - severe, AVR 0 #23 CE mini) 06/25PAF - post opADHERENCE TO GUIDELINESACE-I or ARB for HF with prior LVEF<40 (NQF 0081) - N/AASA or Plavix for ASHD (NQF 0067) - N/ABeta ricarda for ASHD with prior RI or prior LVEF<40 (NQF 0070) - N/ABeta ricarda for HF with prior LVEF<40 (NQF 0083) - N/AACE-I or ARB for ASHD with DM or prior LVEF<40 (NQF 0066) - N/AStatin therapy for ASHD or FHL or DM - N/ABMI documented and plan if >25 (NQF 0421) - lifestyle recommendation formTobacco use screening and referral (NQF 0028) - lifestyle recommendation formRecommendation for whole food, plant based diet - lifestyle recommendation formCLINICAL IMPRESSION/PLAN:Ciera WellsWritten and verbal health teaching given to patient, patient verbalizesunderstanding and agrees with treatment plan.DIAGNOSIS FOR VISIT:HISTORY OF PRESENT ILLNESSCiera WellsALLERGIES:ALLERGIESAllergen Reactions- Tape [Adhesive Tape* RashCURRENT OUTPATIENT MEDICATIONS:lisinopril (ZESTRIL, PRINIVIL) 5 mg tablet Take 1 tablet by mouth once daily.acetaminophen (TYLENOL) 325 mg tablet Take 2 tablets by mouth every 4 hours asneeded (for mild pain. Do not exceed more than 3000mg of Tylenol in a 24 hourperiod.).warfarin (COUMADIN) 5 mg tablet Take 1 tablet by mouth once daily. On Thursday,07/05 take 2.5 mg (half a tab). Next INR on Thursday 07/06, dosing instructions byDr. Richards.Multivitamin capsule Take 1 capsule by mouth once daily.Aloe Vera gel Apply 1 application to affected area once daily.sitaGLIPtin (JANUVIA) 100 mg tablet Take 1 tablet by mouth once daily.senna-docusate (SENNA-S) 8.6-50 mg per tablet Take 1 tablet by mouth twicedaily as needed for Constipation.PHYSICAL EXAMINATION:VITAL SIGNS: BP 148/75 Pulse 64 Wt 217 lb 4.8 oz (98.6kg)Chest: Clear to percussion and auscultation. Trachea is midline. Air entry isequal. Cardiac: Regular rhythm. S1 and S2 are normal. PMI is nondisplaced.There are no murmurs, rubs or gallops. Carotids are brisk without bruits.JVP is less than 10 cm. Abdomen: Soft and nontender. There are no pulsatilemasses or bruits. No liver enlargement. Bowel sounds are active.Extremities: No edema. Pulses are intact and symmetrical.Electronically Signed:Randee Hobbs2017 10:47 [facility]: Jarred Conway MD 10/28/2017 10:49 AM SignedLIFESTYLE CHANGEA healthy lifestyle is the most important component of your overall treatmentplan. Please give serious thought to the following areas and commit to makinglong term changes.EAT A WHOLE FOOD, PLANT BASED DIETThe nutrition your body gets is more important than the medicine you take.What matters most is the overall way you eat. We encourage you to minimize theuse of animal products (which include dairy and all meats except fatty fish)and use whole, unprocessed plant foods to provide your protein, vitamins andother nutrients. We have a lot of information to share with you on this topic.This is not a diet. It is a way of life that you will keep with you.EXERCISE REGULARLYIt is not important to spend hours in the gym, lifting weights and perspiringheavily. A total of 2-3 hours per week of aerobic (causing you to bemoderately short of breath) exercise is sufficient to improve your health.Talk to us before you begin a new exercise program, if you have heart diseaseor experience shortness of breath or chest pain.REDUCE STRESSChronic emotional and physical stress leads to disease. Ways of reducingstress include meditation, visualization, prayer, yoga and other forms ofrelaxation therapy. Consistency is the colbert. Find a technique that works foryou and do it every day.CULTIVATE RELATIONSHIPSLoneliness and isolation have a major negative impact on health. Seek outothers who can love, care for and nurture you. Avoid hurtful relationships.MAINTAIN IDEAL BODY WEIGHTThe best way to do this is to do all the things above. Our bodies naturallyfind the right weight if we keep moving and feed ourselves the right food. Ifyour BMI is greater than 25, we strongly recommend a referral to a weightmanagement program. Please speak to us or your family physician aboutavailable programs.AVOID NICOTINE IN ALL FORMSThis includes all tobacco products, whether chewed, smoked, vaped, or rubbed onthe skin. Smoking cessation programs, which can make use of tobaccosubstitutes, medications to suppress cravings and behavior management, areavailable. Please contact your family physician about programs in your area.Referring Provider: ZORA CONWAY [[id number]]Allergies As of Date: 10/28/2017 Noted Allergy ReactionTAPE (ADHESIVE TAPE (ROSINS)) 06/26/2017 2 - RashDate Reviewed: 10/28/2017Reviewed by: Ramesh (Rn) Milind - Fully AssessedReason for Visit: Established Patient [175] Cmt: 3 month follow-up AVR/HTNReason For Visit History RecordedPrimary Visit Diagnosis:S/P AVR [Z95.2]Order(s):aspirin, enteric coated (ASPIR-LOW) 81 mg EC tabletTake 1 tablet by mouth once daily.Disp: Rfl:Prescriptions as of 10/28/2017 Sig: LISINOPRIL 5 MG TABLET Take 1 tablet by mouth once d* ACETAMINOPHEN 325 MG TABLET Take 2 tablets by mouth every* MULTIVITAMIN CAPSULE Take 1 capsule by mouth once * ALOE VERA TOPICAL GEL Apply 1 application to affect* ASPIRIN 81 MG TABLET,DELAYED * Take 1 tablet by mouth once d* SITAGLIPTIN 100 MG TABLET Take 1 tablet by mouth once d* Patient not taking: Reported on 10/28/2017 SENNOSIDES 8.6 MG-DOCUSATE SO* Take 1 tablet by mouth twice * Patient not taking: Reported on 10/28/2017Problem List As Of Date 10/28/2017 Noted Resolved Nonrheumatic aortic valve stenosis [I35.0] Priority: A More... Obesity, Class III, BMI >= 40 (morbid obesity) *INVALID FOR* Priority: L More... Discharge planning issues [Z02.9] INVALID FOR* Priority: M More... Pre-op testing [Z01.818] INVALID FOR*06/30/2017 More... More... Stress hyperglycemia [R73.9] INVALID FOR* Priority: E More... Fluid overload [E87.70] INVALID FOR* Priority: F More... Postoperative hypertension [I97.3] INVALID FOR* Priority: C More... Atelectasis [J98.11] INVALID FOR*07/01/2017 Priority: B More... Paroxysmal SVT (supraventricular tachycardia) (*INVALID FOR*06/30/2017 More... Transition of care performed with sharing of cl*INVALID FOR* Priority: Very Severe More... Paroxysmal atrial fibrillation (HCC) [I48.0] INVALID FOR* Priority: A More... Other instructions from your clinician: LIFESTYLE CHANGE A healthy lifestyle is the most important component of your overall treatment plan. Please give serious thought to the following areas and commit to making correction changes. EAT A WHOLE FOOD, PLANT BASED DIET The nutrition your body gets is more important than the medicine you take. What matters most is the overall way you eat. We encourage you to minimize the use of animal products (which include dairy and all meats except fatty fish) and use whole, unprocessed plant foods to provide your protein, vitamins and other nutrients. We have a lot of information to share with you on this topic. This is not a diet. It is a way of life that you will keep with you. EXERCISE REGULARLY It is not important to spend hours in the gym, lifting weights and perspiring heavily. A total of 2-3 hours per week of aerobic (causing you to be moderately short of breath) exercise is sufficient to improve your health. Talk to us before you begin a new exercise program, if you have heart disease or experience shortness of breath or chest pain. REDUCE STRESS Chronic emotional and physical stress leads to disease. Ways of reducing stress include meditation, visualization, prayer, yoga and other forms of relaxation therapy. Consistency is the colbert. Find a technique that works for you and do it every day. CULTIVATE RELATIONSHIPS Loneliness and isolation have a major negative impact on health. Seek out others who can love, care for and nurture you. Avoid hurtful relationships. MAINTAIN IDEAL BODY WEIGHT The best way to do this is to do all the things above. Our bodies naturally find the right weight if we keep moving and feed ourselves the right food. If your BMI is greater than 25, we strongly recommend a referral to a weight management program. Please speak to us or your family physician about available programs. AVOID NICOTINE IN ALL FORMS This includes all tobacco products, whether chewed, smoked, vaped, or rubbed on the skin. Smoking cessation programs, which can make use of tobacco substitutes, medications to suppress cravings and behavior management, are available. Please contact your family physician about programs in your area.Prescriptions ordered this encounter Disp Refills Start End ASPIRIN 81 MG TABLET,DELAYED RELEASE 10/28/2017 Class: Med Update Route: ORAL Sig: Take 1 tablet by mouth once daily.Medications Discontinued During This Encounter warfarin (COUMADIN) 5 mg tablet 45 t* 1 07/02/2017 10/28/2017 Route: ORAL Sig: Take 1 tablet by mouth once daily. On Thursday, 07/05 take 2.5 mg (half a tab). Next INR on Thursday 07/06, dosing instructions by Dr. Richards. Disc: Reason for discontinue is not on file. amiodarone (PACERONE) 200 mg tablet 50 t* 0 07/02/2017 10/28/2017 Class: Print RX Sig: Continue 400mg (2 tabs) by mouth twice daily until 07/04/17.On 07/05/2017, decrease to 200mg (1 tab) by mouth twice daily until 07/11/2017.On 07/12/2017, decrease to 200 mg (1 tab) by mouth once daily until 08/09/2017. Patient not taking: Reported on 10/28/2017 Disc: Reason for discontinue is not on file. metoprolol tartrate, short acting, (* 60 t* 1 07/02/2017 10/28/2017 Route: ORAL Sig: Take 1 tablet by mouth every 12 hours. Patient not taking: Reported on 10/28/2017 Disc: Reason for discontinue is not on file. Status:Closed by ZORA CONWAY MD on 10/29/17 [facility] PROGRESSon 10-28-2017 PROGRESS HNO ID: [id number] thor: Zora Ortiz: (none)Author Type: PhysicianType: Progress NotesFiled: 10/29/2017 12:36 PMNote Text:PERTINENT CARDIAC HISTORYAortic stenosis - severe, AVR 0 #23 CE mini) 06/25PAF - post opADHERENCE TO GUIDELINESACE-I or ARB for HF with prior LVEF<40 (NQF 0081) - N/AASA or Plavix for ASHD (NQF 0067) - N/ABeta ricarda for ASHD with prior RI or prior LVEF<40 (NQF 0070) - N/ABeta ricarda for HF with prior LVEF<40 (NQF 0083) - N/AACE-I or ARB for ASHD with DM or prior LVEF<40 (NQF 0066) - N/AStatin therapy for ASHD or FHL or DM - N/ABMI documented and plan if >25 (NQF 0421) - lifestyle recommendation formTobacco use screening and referral (NQF 0028) - lifestyle recommendationformRecommendation for whole food, plant based diet - lifestyle recommendationformCLINICAL IMPRESSION/PLAN:Ciera WellsWritten and verbal health teaching given to patient, patient verbalizesunderstanding and agrees with treatment plan.DIAGNOSIS FOR VISIT:HISTORY OF PRESENT ILLNESSCiera WellsALLERGIES:ALLERGIESAllergen Reactions- Tape [Adhesive Tape* RashCURRENT OUTPATIENT MEDICATIONS:lisinopril (ZESTRIL, PRINIVIL) 5 mg tablet Take 1 tablet by mouth oncedaily.acetaminophen (TYLENOL) 325 mg tablet Take 2 tablets by mouth every 4hours as needed (for mild pain. Do not exceed more than 3000mg of Tylenolin a 24 hour period.).warfarin (COUMADIN) 5 mg tablet Take 1 tablet by mouth once daily. OnSunday, 07/05 take 2.5 mg (half a tab). Next INR on Thursday 07/06, dosinginstructions by Dr. Richards.Multivitamin capsule Take 1 capsule by mouth once daily.Aloe Vera gel Apply 1 application to affected area once daily.sitaGLIPtin (JANUVIA) 100 mg tablet Take 1 tablet by mouth once daily.senna-docusate (SENNA-S) 8.6-50 mg per tablet Take 1 tablet by mouth twicedaily as needed for Constipation.PHYSICAL EXAMINATION:VITAL SIGNS: BP 148/75 Pulse 64 Wt 217 lb 4.8 oz (98.6kg)Chest: Clear to percussion and auscultation. Trachea is midline. Airentry is equal. Cardiac: Regular rhythm. S1 and S2 are normal. PMI isnondisplaced. There are no murmurs, rubs or gallops. Carotids are briskwithout bruits. JVP is less than 10 cm. Abdomen: Soft and nontender.There are no pulsatile masses or bruits. No liver enlargement. Bowelsounds are active. Extremities: No edema. Pulses are intact andsymmetrical.Electronically Signed:Kenton Hobbs 2017 10:47 [facility]: Jarred Dominique [facility] 07-30-2017 CN Office Visit (AGCARDWST) MARCO ANTONIO WELLS ([id number]) 1940 FDate Time Provider Department07/30/17 11:00 AM ZORA CONWAYWSChano During your visit today, we recorded the following information about you: Pulse Blood pressure Weight Height 60/minute 128/52 95.9 kg 1.549 Ayush Conway MD 07/30/2017 11:49 AM SignedPERTINENT CARDIAC HISTORYAortic stenosis - severe, AVR 0 #23 CE mini) 06/25PAF - post opADHERENCE TO GUIDELINESACE-I or ARB for HF with prior LVEFANDlt;40 (NQF 0081) - N/AASA or Plavix for ASHD (NQF 0067) - N/ABeta ricarda for ASHD with prior RI or prior LVEFANDlt;40 (NQF 0070) - N/ABeta ricarda for HF with prior LVEFANDlt;40 (NQF 0083) - N/AACE-I or ARB for ASHD with DM or prior LVEFANDlt;40 (NQF 0066) - N/AStatin therapy for ASHD or FHL or DM - N/ABMI documented and plan if ANDgt;25 (NQF 0421) - lifestyle recommendation formTobacco use screening and referral (NQ 0028) - lifestyle recommendation formRecommendation for whole food, plant based diet - lifestyle recommendation formCLINICAL IMPRESSION/PLAN:Ciear Wells is doing well. She's had good surgical result. The valve isfunctioning normally by exam.Amiodarone will be discontinued as scheduled in 2 weeks. She will continue herwarfarin therapy. I will see her in 3 months at which time we will considerdiscontinuation of warfarin.She will undergo basic profile, TSH, ALT and CBC today.If she has recurrence of her lightheaded spells, she's been advised to contactme. We may need to decrease lisinopril. She's been asked to check her bloodpressure periodically.She will gradually increase activity. For now, she will not be referred to aformal cardiac rehabilitation program as she has the opportunity to do a lot ofphysical activity.She will follow-up with primary care regarding her hyperglycemia, which islikely stress induced.Written and verbal health teaching given to patient, patient verbalizesunderstanding and agrees with treatment plan.This note was generated using [employer] voice recognition system, and there may besome incorrect words, spellings, and punctuation that were not noted inchecking the note before saving.DIAGNOSIS FOR VISIT:AVRHypertensionHISTORY OF PRESENT ILLNESSCiera Wells returns for follow-up of her aortic valve disease. She underwentmini sternotomy with bioprosthetic aortic valve. She developed recurrent atrialfibrillation postoperatively and was started on amiodarone and warfarin. She'shad some epistaxis but saw an ENT physician. She was taken off aspirin and hashad no recurrent episodes.She's gradually increased her exercise. She notes significant improvement inexercise tolerance. She's had no chest discomfort. She denies orthopnea, edema.She has had minimal sensation of irregular heartbeat which has thecharacteristic more of occasional atrial prematures.She denies TIAs, amaurosis and claudication.She had one episode of dizziness which occurred while she was having nosebleedsand had been very active. She has increased her fluids and has had norecurrence.She was started on lisinopril for elevated blood pressure. She was on noantihypertensive medication prior to surgery.ALLERGIES:ALLERGIESAllerge n Reactions- Tape [Adhesive Tape* RashCURRENT OUTPATIENT MEDICATIONS:acetaminophen (TYLENOL) 325 mg tablet Take 2 tablets by mouth every 4 hours asneeded (for mild pain. Do not exceed more than 3000mg of Tylenol in a 24 hourperiod.).warfarin (COUMADIN) 5 mg tablet Take 1 tablet by mouth once daily. On Thursday,07/05 take 2.5 mg (half a tab). Next INR on Thursday 07/06, dosing instructions byDr. Richards.sitaGLIPtin (JANUVIA) 100 mg tablet Take 1 tablet by mouth once daily.metoprolol tartrate, short acting, (LOPRESSOR) 25 mg tablet Take 1 tablet bymouth every 12 hours.senna-docusate (SENNA-S) 8.6-50 mg per tablet Take 1 tablet by mouth twicedaily as needed for Constipation.amiodarone (PACERONE) 200 mg tablet Continue 400mg (2 tabs) by mouth twicedaily until 07/04/17.On 07/05/2017, decrease to 200mg (1 tab) by mouth twicedaily until 07/11/2017.On 07/12/2017, decrease to 200 mg (1 tab) by mouth oncedaily until 08/09/2017.Multivitamin capsule Take 1 capsule by mouth once daily.Aloe Vera gel Apply 1 application to affected area once daily.lisinopril (ZESTRIL, PRINIVIL) 5 mg tablet Take 1 tablet by mouth once daily.aspirin 81 mg chewable tablet Take 1 tablet by mouth once daily.PHYSICAL EXAMINATION:VITAL SIGNS: BP 128/52 Pulse 60 Ht 5' 1ANDquot; (1.55m) Wt 211 lb 6.4 oz(95.9kg) BMI 39.96 kg/(m2).Chest: Clear to percussion and auscultation. Sternotomy is healing well. Thereis no click or instability. There is no drainage Trachea is midline. Air entryis equal. Cardiac: Regular rhythm. S1 and S2 are normal. PMI isnondisplaced. There is a soft systolic ejection murmur. There is no aorticinsufficiency murmur. Carotids are brisk without bruits. JVP is less than 10cm. Abdomen: Soft and nontender. There are no pulsatile masses or bruits. Noliver enlargement. Bowel sounds are active. Extremities: No edema. Pulsesare intact and symmetrical.[facility]. Postoperative EKG showed sinusbradycardia. There was no ischemic change.Electronically Signed:Zora Conway MDFebruary 2017 11:26 [facility]: Jarred Conway MD 07/30/2017 11:27 AM SignedStop amiodarone on 08/09 as scheduled.Gradually increase activity over the next few weeks.LIFESTYLE CHANGEA healthy lifestyle is the most important component of your overall treatmentplan. Please give serious thought to the following areas and commit to makinglong term changes.EAT A WHOLE FOOD, PLANT BASED DIETThe nutrition your body gets is more important than the medicine you take.What matters most is the overall way you eat. We encourage you to minimize theuse of animal products (which include dairy and all meats except fatty fish)and use whole, unprocessed plant foods to provide your protein, vitamins andother nutrients. We have a lot of information to share with you on this topic. We also hold Shared Medical Appointments, where you can come visit with in the company of other patients and spend over an hour talking aboutthe challenges of changing the way you eat. This is not a ANDquot;dietANDquot;.It is a way of life that you will keep with you.EXERCISE REGULARLYIt is not important to spend hours in the gym, lifting weights and perspiringheavily. A total of 2-3 hours per week of aerobic (causing you to bemoderately short of breath) exercise is sufficient to improve your health.Talk to us before you begin a new exercise program, if you have heart diseaseor experience shortness of breath or chest pain.REDUCE STRESSChronic emotional and physical stress leads to disease. Ways of reducingstress include meditation, visualization, prayer, yoga and other forms ofrelaxation therapy. Consistency is the colbert. Find a technique that works foryou and do it every day.CULTIVATE RELATIONSHIPSLoneliness and isolation have a major negative impact on health. Seek outothers who can love, care for and nurture you. Avoid hurtful relationships.MAINTAIN IDEAL BODY WEIGHTThe best way to do this is to do all the things above. Our bodies naturallyfind the right weight if we keep moving and feed ourselves the right food. Ifyour BMI is greater than 25, we strongly recommend a referral to a weightmanagement program. Please speak to us or your family physician aboutavailable programs.AVOID NICOTINE IN ALL FORMSThis includes all tobacco products, whether chewed, smoked, vaped, or rubbed onthe skin. Smoking cessation programs, which can make use of tobaccosubstitutes, medications to suppress cravings and behavior management, areavailable. Please contact your family physician about programs in your area.Ralph Angelo RN, RN 07/31/2017 8:08 AM SignedCopy of OV note mailed to Dr. Dominique's office.Referring Provider: ZORA CONWAY [[id number]]Allergies As of Date: 07/30/2017 Noted Allergy ReactionTAPE (ADHESIVE TAPE (ROSINS)) 06/26/2017 2 - RashDate Reviewed: 07/30/2017Reviewed by: Ralph Mehta) CHELY Angelo - Fully AssessedReason for Visit: Follow Up [171] Cmt: one monthPrimary Visit Diagnosis:S/P AVR [Z95.2] Other Visit Diagnosis:PAF (paroxysmal atrial fibrillation) (HCC) [I48.0]Order(s):BASIC METABOLIC PNL [SQBMP] Order #: [id number] FUTURE ALT/SGPT [SQALT] Order #: [id number] FUTURE TSH BLD [SQTSH] Order #: [id number] FUTURE CBC [SQCBC] Order #: [id number] FUTURE lisinopril (ZESTRIL, PRINIVIL) 5 mg tabletTake 1 tablet by mouth once daily.Disp: 30 tabletRfl: 6Prescriptions as of 07/30/2017 Sig: ACETAMINOPHEN 325 MG TABLET Take 2 tablets by mouth every* WARFARIN 5 MG TABLET Take 1 tablet by mouth once d* SITAGLIPTIN 100 MG TABLET Take 1 tablet by mouth once d* METOPROLOL TARTRATE 25 MG TAB* Take 1 tablet by mouth every * SENNOSIDES 8.6 MG-DOCUSATE SO* Take 1 tablet by mouth twice * AMIODARONE 200 MG TABLET Continue 400mg (2 tabs) by mo* MULTIVITAMIN CAPSULE Take 1 capsule by mouth once * ALOE VERA TOPICAL GEL Apply 1 application to affect* LISINOPRIL 5 MG TABLET Take 1 tablet by mouth once d*Problem List As Of Date 07/30/2017 Noted Resolved Nonrheumatic aortic valve stenosis [I35.0] Priority: A More... Obesity, Class III, BMI >= 40 (morbid obesity) *INVALID FOR* Priority: L More... Discharge planning issues [Z02.9] INVALID FOR* Priority: M More... Pre-op testing [Z01.818] INVALID FOR*06/30/2017 More... More... Stress hyperglycemia [R73.9] INVALID FOR* Priority: E More... Fluid overload [E87.70] INVALID FOR* Priority: F More... Postoperative hypertension [I97.3] INVALID FOR* Priority: C More... Atelectasis [J98.11] INVALID FOR*07/01/2017 Priority: B More... Paroxysmal SVT (supraventricular tachycardia) (*INVALID FOR*06/30/2017 More... Transition of care performed with sharing of cl*INVALID FOR* Priority: Very Severe More... Paroxysmal atrial fibrillation (HCC) [I48.0] INVALID FOR* Priority: A More... Other instructions from your clinician: Stop amiodarone on 08/09 as scheduled. Gradually increase activity over the next few weeks. LIFESTYLE CHANGE A healthy lifestyle is the most important component of your overall treatment plan. Please give serious thought to the following areas and commit to making correction changes. EAT A WHOLE FOOD, PLANT BASED DIET The nutrition your body gets is more important than the medicine you take. What matters most is the overall way you eat. We encourage you to minimize the use of animal products (which include dairy and all meats except fatty fish) and use whole, unprocessed plant foods to provide your protein, vitamins and other nutrients. We have a lot of information to share with you on this topic. We also hold Shared Medical Appointments, where you can come visit with Dr. Conway in the company of other patients and spend over an hour talking about the challenges of changing the way you eat. This is not a diet. It is a way of life that you will keep with you. EXERCISE REGULARLY It is not important to spend hours in the gym, lifting weights and perspiring heavily. A total of 2-3 hours per week of aerobic (causing you to be moderately short of breath) exercise is sufficient to improve your health. Talk to us before you begin a new exercise program, if you have heart disease or experience shortness of breath or chest pain. REDUCE STRESS Chronic emotional and physical stress leads to disease. Ways of reducing stress include meditation, visualization, prayer, yoga and other forms of relaxation therapy. Consistency is the colbert. Find a technique that works for you and do it every day. CULTIVATE RELATIONSHIPS Loneliness and isolation have a major negative impact on health. Seek out others who can love, care for and nurture you. Avoid hurtful relationships. MAINTAIN IDEAL BODY WEIGHT The best way to do this is to do all the things above. Our bodies naturally find the right weight if we keep moving and feed ourselves the right food. If your BMI is greater than 25, we strongly recommend a referral to a weight management program. Please speak to us or your family physician about available programs. AVOID NICOTINE IN ALL FORMS This includes all tobacco products, whether chewed, smoked, vaped, or rubbed on the skin. Smoking cessation programs, which can make use of tobacco substitutes, medications to suppress cravings and behavior management, are available. Please contact your family physician about programs in your area.Visit Notes:>> Ralph Mehta) CHELY Angelo Fri Jul 31, 2017 8:08 AM Status: SignedCopy of OV note mailed to Dr. Dominique's office.Prescriptions ordered this encounter Disp Refills Start End LISINOPRIL 5 MG TABLET 30 t* 6 07/30/2017 Route: ORAL Sig: Take 1 tablet by mouth once daily.Medications Discontinued During This Encounter potassium chloride ER (BELTRAN BAILON-C* 30 t* 0 07/02/2017 07/30/2017 Route: ORAL Sig: Take 2 tablets by mouth once daily. For 7 days. Then decrease to 1 tablet daily for 7 days. Then stop. (While taking Lasix). Disc: Reason for discontinue is not on file. furosemide (LASIX) 20 mg tablet 30 t* 0 07/02/2017 07/30/2017 Route: ORAL Sig: Take 2 tablets by mouth once daily. For 7 days. Then decrease to 1 tablet daily for 7 days. Then stop. Disc: Reason for discontinue is not on file. lisinopril (ZESTRIL, PRINIVIL) 5 mg * 30 t* 1 07/03/2017 07/30/2017 Route: ORAL Sig: Take 1 tablet by mouth once daily. Disc: Reason for discontinue is not on file. aspirin 81 mg chewable tablet 07/03/2017 07/30/2017 Class: OTC Route: ORAL Sig: Take 1 tablet by mouth once daily. Disc: Reason for discontinue is not on file.[employer] SmartForms filed during this visit:Extended VitalsEncounter Number: [id number] Status:Closed by ZORA CONWAY MD on 07/30/17 [facility] PROGRESSon 07-30-2017 PROGRESS HNO ID: [id number] thor: Zora Ortiz: (none)Author Type: PhysicianType: Progress NotesFiled: 07/30/2017 11:49 AMNote Text:PERTINENT CARDIAC HISTORYAortic stenosis - severe, AVR 0 #23 CE mini) 06/25PAF - post opADHERENCE TO GUIDELINESACE-I or ARB for HF with prior LVEF<40 (NQF 0081) - N/AASA or Plavix for ASHD (NQF 0067) - N/ABeta ricarda for ASHD with prior RI or prior LVEF<40 (NQF 0070) - N/ABeta ricarda for HF with prior LVEF<40 (NQF 0083) - N/AACE-I or ARB for ASHD with DM or prior LVEF<40 (NQF 0066) - N/AStatin therapy for ASHD or FHL or DM - N/ABMI documented and plan if >25 (NQF 0421) - lifestyle recommendation formTobacco use screening and referral (NQF 0028) - lifestyle recommendationformRecommendation for whole food, plant based diet - lifestyle recommendationformCLINICAL IMPRESSION/PLAN:Ciera Wells is doing well. She's had good surgical result. The valve isfunctioning normally by exam.Amiodarone will be discontinued as scheduled in 2 weeks. She will continueher warfarin therapy. I will see her in 3 months at which time we willconsider discontinuation of warfarin.She will undergo basic profile, TSH, ALT and CBC today.If she has recurrence of her lightheaded spells, she's been advised tocontact me. We may need to decrease lisinopril. She's been asked to checkher blood pressure periodically.She will gradually increase activity. For now, she will not be referred toa formal cardiac rehabilitation program as she has the opportunity to do alot of physical activity.She will follow-up with primary care regarding her hyperglycemia, which islikely stress induced.Written and verbal health teaching given to patient, patient verbalizesunderstanding and agrees with treatment plan.This note was generated using [employer] voice recognition system, and theremay be some incorrect words, spellings, and punctuation that were notnoted in checking the note before saving.DIAGNOSIS FOR VISIT:AVRHypertensionHISTORY OF PRESENT ILLNESSCiera Wells returns for follow-up of her aortic valve disease. Sheunderwent mini sternotomy with bioprosthetic aortic valve. She developedrecurrent atrial fibrillation postoperatively and was started onamiodarone and warfarin. She's had some epistaxis but saw an ENTphysician. She was taken off aspirin and has had no recurrent episodes.She's gradually increased her exercise. She notes significant improvementin exercise tolerance. She's had no chest discomfort. She deniesorthopnea, edema. She has had minimal sensation of irregular heartbeatwhich has the characteristic more of occasional atrial prematures.She denies TIAs, amaurosis and claudication.She had one episode of dizziness which occurred while she was havingnosebleeds and had been very active. She has increased her fluids and hashad no recurrence.She was started on lisinopril for elevated blood pressure. She was on noantihypertensive medication prior to surgery.ALLERGIES:ALLERGIESAllerge n Reactions- Tape [Adhesive Tape* RashCURRENT OUTPATIENT MEDICATIONS:acetaminophen (TYLENOL) 325 mg tablet Take 2 tablets by mouth every 4hours as needed (for mild pain. Do not exceed more than 3000mg of Tylenolin a 24 hour period.).warfarin (COUMADIN) 5 mg tablet Take 1 tablet by mouth once daily. OnSunday, 07/05 take 2.5 mg (half a tab). Next INR on Thursday 07/06, dosinginstructions by Dr. Richards.sitaGLIPtin (JANUVIA) 100 mg tablet Take 1 tablet by mouth once daily.metoprolol tartrate, short acting, (LOPRESSOR) 25 mg tablet Take 1 tabletby mouth every 12 hours.senna-docusate (SENNA-S) 8.6-50 mg per tablet Take 1 tablet by mouth twicedaily as needed for Constipation.amiodarone (PACERONE) 200 mg tablet Continue 400mg (2 tabs) by mouth twicedaily until 07/04/17.On 07/05/2017, decrease to 200mg (1 tab) by mouth twicedaily until 07/11/2017.On 07/12/2017, decrease to 200 mg (1 tab) by mouth oncedaily until 08/09/2017.Multivitamin capsule Take 1 capsule by mouth once daily.Aloe Vera gel Apply 1 application to affected area once daily.lisinopril (ZESTRIL, PRINIVIL) 5 mg tablet Take 1 tablet by mouth oncedaily.aspirin 81 mg chewable tablet Take 1 tablet by mouth once daily.PHYSICAL EXAMINATION:VITAL SIGNS: BP 128/52 Pulse 60 Ht 5' 1 (1.55m) Wt 211 lb 6.4 oz(95.9kg) BMI 39.96 kg/(m2).Chest: Clear to percussion and auscultation. Sternotomy is healing well.There is no click or instability. There is no drainage Trachea is midline. Air entry is equal. Cardiac: Regular rhythm. S1 and S2 are normal.PMI is nondisplaced. There is a soft systolic ejection murmur. There isno aortic insufficiency murmur. Carotids are brisk without bruits. JVPis less than 10 cm. Abdomen: Soft and nontender. There are no pulsatilemasses or bruits. No liver enlargement. Bowel sounds are active.Extremities: No edema. Pulses are intact and symmetrical.[facility] from [facility] were reviewed. Postoperative EKG showedsinus bradycardia. There was no ischemic change.Electronically Signed:Zora Conway MDFebruary 2017 11:26 [facility]: Jarred Dominique [facility] CNOVon 05-25-2017 CNOV Office Visit (AGCARDWST) MARCO ANTONIO WELLS ([id number]) 1940 [facility] ([facility] Time Provider Ayakemafbm23/18/17 1:00 PM ZORA CONWAY AGCARDWST During your visit today, we recorded the following information about you: Pulse Blood pressure Weight Height 54/minute 118/68 98.7 kg 1.6 Ayush Conway MD 05/25/2017 5:32 PM SignedPERTINENT CARDIAC HISTORYAortic stenosis - severeADHERENCE TO GUIDELINESACE-I or ARB for HF with prior LVEFANDlt;40 (NQF 0081) - N/AASA or Plavix for ASHD (NQF 0067) - N/ABeta ricarda for ASHD with prior RI or prior LVEFANDlt;40 (NQF 0070) - N/ABeta ricarda for HF with prior LVEFANDlt;40 (NQF 0083) - N/AACE-I or ARB for ASHD with DM or prior LVEFANDlt;40 (NQF 0066) - N/AStatin therapy for ASHD or FHL or DM - N/ABMI documented and plan if ANDgt;25 (NQF 0421) - lifestyle recommendation formTobacco use screening and referral (NQF 0028) - lifestyle recommendation formRecommendation for whole food, plant based diet - lifestyle recommendation formCLINICAL IMPRESSION/PLAN:Ciera Wells is amenable to aortic valve procedure. She is relatively youngand quite healthy, although overweight. I urged her to try to get her weightunder little better control prior to any procedure. She will be referred to at [facility]. We discussed the various procedures available. Given herexpected longevity of over 10 years, I suggested that she consider aconventional aortic valve replacement using bioprosthesis through a ministernotomy. She will discuss this further with Dr. Major will see her on a to be arranged basis. She's been advised to call me if shedoes not hear from the surgery office in the next several days.Given the radiation of her murmur into the carotids and the possibility thatbruits may be masked, she will undergo carotid Doppler examination prior tosurgery.Written and verbal health teaching given to patient, patient verbalizesunderstanding and agrees with treatment plan.This note was generated using [employer] voice recognition system, and there may besome incorrect words, spellings, and punctuation that were not noted inchecking the note before saving.DIAGNOSIS FOR VISIT:Aortic stenosisHISTORY OF PRESENT ILLNESSCiera Wells returns for discussion of her coronary angiogram. She was foundto have no significant obstructive coronary disease. She tolerated theprocedure well. She has decided that she wishes to proceed with aortic valvereplacement.She's had no chest discomfort. She continues to have exercise intolerance.She's had no further episodes of near-syncope. She's had no palpitations, TIAs,amaurosis.ALLERGIES:ALLERGIES No Known AllergiesCURRENT OUTPATIENT MEDICATIONS:No prescriptions on file.PHYSICAL EXAMINATION:VITAL SIGNS: BP 118/68 Pulse 54 Ht 5' 3ANDquot; (1.60m) Wt 217 lb 11.2 oz(98.7kg) BMI 38.57 kg/(m2).Chest: Clear to percussion and auscultation. Trachea is midline. Air entry isequal. Cardiac: Regular rhythm. S1 and S2 are normal. PMI is nondisplaced.There is a 3/6 late peaking murmur of aortic stenosis, which radiates into bothcarotids. Carotid upstrokes are delayed. JVP is less than 10 cm. Abdomen:Soft and nontender. There are no pulsatile masses or bruits. No liverenlargement. Bowel sounds are active. Extremities: No edema. Pulses areintact and symmetrical.EKG shows significant LVH.Angiography shows no significant obstructive coronary disease.Electronically Signed:Nena Hobbs 2016 10:40 [facility]: Jarred Angelo RN, RN 05/26/2017 8:06 AM SignedCopy of OV note mailed to Jarred Dominique's office.Referring Provider: ZORA CONWAY [[id number]]Allergies As of Date: 05/25/2017(No Known Allergies)Date Reviewed: 05/25/2017Reviewed by: Ralph Angelo RN - Fully AssessedReason for Visit: Follow Up [171]Primary Visit Diagnosis:Occlusion and stenosis of carotid artery [I65.29]Order(s): CAROTID ARTERIES [facility] [[id number]] Order #: [id number] FUTUREProblem List As Of Date: 05/25/2017(None)Visit Notes:>> Ralph Angelo RN ThuMay 26, 2017 8:06 AM Status: SignedCopy of OV note mailed to Jarred Dominique's office.Follow-up and Disposition History RecordedClassic SmartForms filed during this visit:Extended VitalsEncounter Number: [id number] Status:Closed by ZORA CONWAY MD on 05/25/17 [facility] PROGRESSon 05-25-2017 PROGRESS HNO ID: [id number] thor: Zora Ortiz: (none)Author Type: PhysicianType: Progress NotesFiled: 05/25/2017 5:32 PMNote Text:PERTINENT CARDIAC HISTORYAortic stenosis - severeADHERENCE TO GUIDELINESACE-I or ARB for HF with prior LVEF<40 (NQF 0081) - N/AASA or Plavix for ASHD (NQF 0067) - N/ABeta ricarda for ASHD with prior RI or prior LVEF<40 (NQF 0070) - N/ABeta ricarda for HF with prior LVEF<40 (NQF 0083) - N/AACE-I or ARB for ASHD with DM or prior LVEF<40 (NQF 0066) - N/AStatin therapy for ASHD or FHL or DM - N/ABMI documented and plan if >25 (NQF 0421) - lifestyle recommendation formTobacco use screening and referral (NQF 0028) - lifestyle recommendationformRecommendation for whole food, plant based diet - lifestyle recommendationformCLINICAL IMPRESSION/PLAN:Ciera Wells is amenable to aortic valve procedure. She is relativelyyoung and quite healthy, although overweight. I urged her to try to gether weight under little better control prior to any procedure. She will bereferred to Dr. [facility]. We discussed the various proceduresavailable. Given her expected longevity of over 10 years, I suggested thatshe consider a conventional aortic valve replacement using bioprosthesisthrough a mini sternotomy. She will discuss this further with Dr. Major will see her on a to be arranged basis. She's been advised to call me ifcindy does not hear from the surgery office in the next several days.Given the radiation of her murmur into the carotids and the possibilitythat bruits may be masked, she will undergo carotid Doppler examinationprior to surgery.Written and verbal health teaching given to patient, patient verbalizesunderstanding and agrees with treatment plan.This note was generated using [employer] voice recognition system, and theremay be some incorrect words, spellings, and punctuation that were notnoted in checking the note before saving.DIAGNOSIS FOR VISIT:Aortic stenosisHISTORY OF PRESENT ILLNESSCeira Wells returns for discussion of her coronary angiogram. She wasfound to have no significant obstructive coronary disease. She toleratedthe procedure well. She has decided that she wishes to proceed with aorticvalve replacement.She's had no chest discomfort. She continues to have exercise intolerance.She's had no further episodes of near-syncope. She's had no palpitations,TIAs, amaurosis.ALLERGIES:ALLERGIESNo Known AllergiesCURRENT OUTPATIENT MEDICATIONS:No prescriptions on file.PHYSICAL EXAMINATION:VITAL SIGNS: BP 118/68 Pulse 54 Ht 5' 3 (1.60m) Wt 217 lb 11.2 oz(98.7kg) BMI 38.57 kg/(m2).Chest: Clear to percussion and auscultation. Trachea is midline. Airentry is equal. Cardiac: Regular rhythm. S1 and S2 are normal. PMI isnondisplaced. There is a 3/6 late peaking murmur of aortic stenosis,which radiates into both carotids. Carotid upstrokes are delayed. JVPis less than 10 cm. Abdomen: Soft and nontender. There are no pulsatilemasses or bruits. No liver enlargement. Bowel sounds are active.Extremities: No edema. Pulses are intact and symmetrical.EKG shows significant LVH.Angiography shows no significant obstructive coronary disease.Electronically Signed:Nena Hobbs 2016 10:40 [facility]: Jarred Dumas [facility] CNOVon 04-22-2017 CNOV Office Visit (AGCARDWST) PRISCILLAMARCO ANTONIO Watkins ([id number]) 1940 FDate Time Provider Jaygjycvqf62/15/17 2:30 PM ZORA CONWAY AGCARDWST During your visit today, we recorded the following information about you: Pulse Blood pressure Weight Height 60/minute 144/66 99 kg 1.6 Ayush Conway MD 04/22/2017 11:36 AM SignedPERTINENT CARDIAC HISTORYAortic stenosis - severeADHERENCE TO GUIDELINESACE-I or ARB for HF with prior LVEFANDlt;40 (NQF 0081) - N/AASA or Plavix for ASHD (NQF 0067) - N/ABeta ricarda for ASHD with prior RI or prior LVEFANDlt;40 (NQF 0070) - N/ABeta ricarda for HF with prior LVEFANDlt;40 (NQF 0083) - N/AACE-I or ARB for ASHD with DM or prior LVEFANDlt;40 (NQF 0066) - N/AStatin therapy for ASHD or FHL or DM - N/ABMI documented and plan if ANDgt;25 (NQF 0421) - lifestyle recommendation formTobacco use screening and referral (NQF 0028) - lifestyle recommendation formRecommendation for whole food, plant based diet - lifestyle recommendation formCLINICAL IMPRESSION/PLAN:Ciera Wells has severe valvular heart disease. She was advised that Irecommend that we proceed with surgical repair. Several options are available.She would like to discuss this further with family. Anticipating [facility]angi[facility], she will undergo chest x-ray andlabs today.Follow-up will be arranged pending her decision regarding referral. I've askedher to call in the next 24 hours after she talks to her family and we can makearrangements for diagnostic angiogram.Written and verbal health teaching given to patient, patient verbalizesunderstanding and agrees with treatment plan.This note was generated using [employer] voice recognition system, and there may besome incorrect words, spellings, and punctuation that were not noted inchecking the note before saving.DIAGNOSIS FOR VISIT:Aortic stenosisHISTORY OF PRESENT ILLNESSCiera Wells returns for follow-up of her valvular heart disease. Sheunderwent echocardiogram today. This showed severe aortic stenosis.She continues to have exercise intolerance with chest tightness when she isdoing her housework. She's had none of these symptoms at rest, although ishaving some interscapular discomfort which seems more musculoskeletal and ispositional. She denies orthopnea. She's had no syncope, TIAs, amaurosis.ALLERGIES:ALLERGIESNo Known AllergiesCURRENT OUTPATIENT MEDICATIONS:No prescriptions on file.PHYSICAL EXAMINATION:VITAL SIGNS: BP 144/66 Pulse 60 Ht 5' 3ANDquot; (1.60m) Wt 218 lb 4.8 oz(99.0kg) BMI 38.68 kg/(m2).Chest: Clear to percussion and auscultation. Trachea is midline. Air entry isequal. Cardiac: Regular rhythm. S1 and S2 are normal. PMI is nondisplaced.There is a 3/6 late peaking murmur of aortic stenosis. This radiates into bothcarotids. Carotid upstrokes are delayed. JVP is less than 10 cm. Abdomen:Soft and nontender. There are no pulsatile masses or bruits. No liverenlargement. Bowel sounds are active. Extremities: No edema. Pulses areintact and symmetrical.Echocardiogram shows severe aortic stenosis. LV function is preserved.Electronically Signed:Misty Hobbs 2016 11:33 [facility]: Jarred Hill BylerReferring Provider: ZORA CONWAY [[id number]]Allergies As of Date: 04/22/2017(No Known Allergies)Date Reviewed: 04/22/2017Reviewed by: Ralph (Rn) CHELY Angelo - Fully AssessedReason for Visit: Follow Up [171]Primary Visit Diagnosis:Nonrheumatic aortic valve stenosis [I35.0]Order(s):XR CHEST 2V FRONTAL/LAT [[id number]] Order #: [id number] FUTURE BASIC METABOLIC PNL [SQBMP] Order #: [id number] FUTURE CBC [SQCBC] Order #: [id number] FUTURE PROTHROMBIN TIME/PT [SQPT] Order #: [id number] FUTUREProblem List As Of Date: 04/22/2017(None)Classic SmartForms filed during this visit:Extended VitalsEncounter Number: [id number] Status:Closed by ZORA CONWAY MD on 04/22/17 [facility] PROGRESSon 04-22-2017 PROGRESS HNO ID: [id number] thor: Zora Ortiz: (none)Author Type: PhysicianType: Progress NotesFiled: 04/22/2017 11:36 AMNote Text:PERTINENT CARDIAC HISTORYAortic stenosis - severeADHERENCE TO GUIDELINESACE-I or ARB for HF with prior LVEF<40 (NQF 0081) - N/AASA or Plavix for ASHD (NQF 0067) - N/ABeta ricarda for ASHD with prior RI or prior LVEF<40 (NQF 0070) - N/ABeta ricarda for HF with prior LVEF<40 (NQF 0083) - N/AACE-I or ARB for ASHD with DM or prior LVEF<40 (NQF 0066) - N/AStatin therapy for ASHD or FHL or DM - N/ABMI documented and plan if >25 (NQF 0421) - lifestyle recommendation formTobacco use screening and referral (NQF 0028) - lifestyle recommendationformRecommendation for whole food, plant based diet - lifestyle recommendationformCLINICAL IMPRESSION/PLAN:Ciera Wells has severe valvular heart disease. She was advised that Irecommend that we proceed with surgical repair. Several options areavailable. She would like to discuss this further with family.Anticipating coronary angiography, possibly at [facility], she willundergo chest x-ray and labs today.Follow-up will be arranged pending her decision regarding referral. I'veasked her to call in the next 24 hours after she talks to her family andwe can make arrangements for diagnostic angiogram.Written and verbal health teaching given to patient, patient verbalizesunderstanding and agrees with treatment plan.This note was generated using [employer] voice recognition system, and theremay be some incorrect words, spellings, and punctuation that were notnoted in checking the note before saving.DIAGNOSIS FOR VISIT:Aortic stenosisHISTORY OF PRESENT ILLNESSCiera Wells returns for follow-up of her valvular heart disease. Sheunderwent echocardiogram today. This showed severe aortic stenosis.She continues to have exercise intolerance with chest tightness when sheis doing her housework. She's had none of these symptoms at rest, althoughis having some interscapular discomfort which seems more musculoskeletaland is positional. She denies orthopnea. She's had no syncope, TIAs,amaurosis.ALLERGIES:ALLERGIES No Known AllergiesCURRENT OUTPATIENT MEDICATIONS:No prescriptions on file.PHYSICAL EXAMINATION:VITAL SIGNS: BP 144/66 Pulse 60 Ht 5' 3 (1.60m) Wt 218 lb 4.8 oz(99.0kg) BMI 38.68 kg/(m2).Chest: Clear to percussion and auscultation. Trachea is midline. Airentry is equal. Cardiac: Regular rhythm. S1 and S2 are normal. PMI isnondisplaced. There is a 3/6 late peaking murmur of aortic stenosis. Thisradiates into both carotids. Carotid upstrokes are delayed. JVP is lessthan 10 cm. Abdomen: Soft and nontender. There are no pulsatile massesor bruits. No liver enlargement. Bowel sounds are active. Extremities:No edema. Pulses are intact and symmetrical.Echocardiogram shows severe aortic stenosis. LV function is preserved.Electronically Signed:Misty Hobbs 2016 11:33 [facility] Office Visit (AGCARDWST) MARCO ANTONIO WELLS ([id number]) 1940 [facility] Time Provider Psakynpuek21/9/17 9:00 AM ZORA CONWAY AGCARDWST During your visit today, we recorded the following information about you: Pulse Blood pressure Weight Height 61/minute 114/72 100.2 kg 1.6 Ayush Conway MD 04/16/2017 10:14 AM SignedPERTINENT CARDIAC HISTORYAortic stenosis - severeADHERENCE TO GUIDELINESACE-I or ARB for HF with prior LVEFANDlt;40 (NQF 0081) - N/AASA or Plavix for ASHD (NQF 0067) - N/ABeta ricarda for ASHD with prior RI or prior LVEFANDlt;40 (NQF 0070) - N/ABeta ricarda for HF with prior LVEFANDlt;40 (NQF 0083) - N/AACE-I or ARB for ASHD with DM or prior LVEFANDlt;40 (NQF 0066) - N/AStatin therapy for ASHD or FHL or DM - N/ABMI documented and plan if ANDgt;25 (NQF 0421) - lifestyle recommendation formTobacco use screening and referral (NQF 0028) - lifestyle recommendation formRecommendation for whole food, plant based diet - lifestyle recommendation formCLINICAL IMPRESSION/PLAN:Ciera Wells has severe aortic stenosis by exam. She has significant symptomsincluding presyncope. There is no evidence of decompensated heart failure.We will proceed with echocardiogram. She is likely near the time when she willrequire surgery, based on her LVH and symptoms.She's been advised not to push beyond the development of symptoms. We willobtain the echocardiogram within the next week.She is otherwise healthy and her life expectancy would lead me to recommend anopen procedure rather than TAVR, although we will discuss this after herultrasound. If her stenosis proves to be severe, as expected, we'll discussangiography and surgical options.Thank you for asking me to see and make recommendations on Ciera Wells.This report will be mailed and faxed to you.Written and verbal health teaching given to patient, patient verbalizesunderstanding and agrees with treatment plan.This note was generated using [employer] voice recognition system, and there may besome incorrect words, spellings, and punctuation that were not noted inchecking the note before saving.DIAGNOSIS FOR VISIT:Aortic stenosisHISTORY OF PRESENT ILLNESSCiera Wells is a 76-year-old woman who is seen in consultation at [facility] Dr. Dominique, for recommendations regarding cardiac murmur.She has had a heart murmur for the last several years. She underwent surgery afew years ago and was told at that time she had a murmur, but no furthertesting was done. She had no complications during the surgery.She has noted decreased exercise tolerance over the last year. She had heatintolerance this past summer. On one occasion she had a near syncopal episodewhile she was mowing her lawn. She's had intermittent tightness in the chestwhich is precipitated by exertion. Chest tightness is relieved promptly whenshe slows down.She has had no orthopnea. She's had minimal edema. She denies TIAs, amaurosis,claudication, palpitations. She's had no ishmael syncope.She has been relatively healthy and takes no medications.ALLERGIES:ALLERGIESNo Known AllergiesCURRENT OUTPATIENT MEDICATIONS:No prescriptions on file.PAST MEDICAL HISTORYDiagnosis Date- Heart murmur- Skin cancerPAST SURGICAL HISTORYProcedure Laterality Date- SECTION HX 1986- PAST SURGICAL HISTORY OF 2016 Skin cancer removal- ROTATOR CUFF REPAIR 01/2015FAMILY HISTORYProblem Relation Age of Onset- Stroke Mother- Cancer Father- Cancer Brother- Heart SonSocial History Marital status: Spouse name: Years of education: Number of children:Social History Main Topics Smoking status: Never Smoker Smokeless status: Never Used Alcohol use: No Drug use: NoOther Topics ConcernMilitary Service NoREVIEW OF SYSTEMS: General: No chills, fever, weight loss, night sweats.SHEENT: No change in vision or auditory acuity. Respiratory: No productivecough. Cardiac: As noted above. GI: No melena. : No dysuria.Musculoskeletal: No myalgias. Neurologic: No strokes. Psychiatric: Nodepression. Endocrine: No diabetes. Hematologic: No anemia.PHYSICAL EXAMINATION: S/he is alert and in no distressVITAL SIGNS: BP 114/72 Pulse 61 Ht 5' 3ANDquot; (1.60m) Wt 221 lb (100.2kg) BMI 39.16 kg/(m2).SHEENT: Skin is warm and dry. Pupils are round and reactive. Retinal vesselsare grossly unremarkable. No xanthelasmas appreciated. Pharynx is benign.There is no oral cyanosis. Neck: supple. No adenopathy or thyroidenlargement. Chest: Clear to percussion and auscultation. Trachea is midline. Air entry is equal. There is no chest wall tenderness. Cardiac: Regularrhythm. S1 and S2 are normal. PMI is nondisplaced. There is a 4/6 latepeaking systolic ejection murmur which radiates into both carotids. The murmurdecreases with standing and Valsalva. S2 is single. Carotid upstrokes aredelayed. JVP is less than 10 cm. Abdomen: Soft and nontender. Obesityprecludes adequate examination. There are no pulsatile masses or bruits. Noliver enlargement. Bowel sounds are active. : Deferred. Extremities: Traceedema. Pulses are intact and symmetrical. No clubbing or cyanosis. Nofemoral bruits. Neurologic: Grossly normal motor and sensory. S/he is alertand oriented x4. Musculoskeletal: No joint deformities.EKG demonstrates sinus rhythm. There is LVH. There is a Q wave in the highlateral leads, which may be related to LVH.No recent labs are available.Electronically Signed:Zora Conway MDApril 16, 2017 9:38 [facility] MD 04/16/2017 9:39 AM SignedLIFESTYLE CHANGEA healthy lifestyle is the most important component of your overall treatmentplan. Please give serious thought to the following areas and commit to makinglong term changes.EAT A WHOLE FOOD, PLANT BASED DIETThe nutrition your body gets is more important than the medicine you take.What matters most is the overall way you eat. We encourage you to minimize theuse of animal products (which include dairy and all meats except fatty fish)and use whole, unprocessed plant foods to provide your protein, vitamins andother nutrients. We have a lot of information to share with you on this topic. We also hold Shared Medical Appointments, where you can come visit with in the company of other patients and spend over an hour talking aboutthe challenges of changing the way you eat. This is not a ANDquot;dietANDquot;.It is a way of life that you will keep with you.EXERCISE REGULARLYIt is not important to spend hours in the gym, lifting weights and perspiringheavily. A total of 2-3 hours per week of aerobic (causing you to bemoderately short of breath) exercise is sufficient to improve your health.Talk to us before you begin a new exercise program, if you have heart diseaseor experience shortness of breath or chest pain.REDUCE STRESSChronic emotional and physical stress leads to disease. Ways of reducingstress include meditation, visualization, prayer, yoga and other forms ofrelaxation therapy. Consistency is the colbert. Find a technique that works foryou and do it every day.CULTIVATE RELATIONSHIPSLoneliness and isolation have a major negative impact on health. Seek outothers who can love, care for and nurture you. Avoid hurtful relationships.MAINTAIN IDEAL BODY WEIGHTThe best way to do this is to do all the things above. Our bodies naturallyfind the right weight if we keep moving and feed ourselves the right food. Ifyour BMI is greater than 25, we strongly recommend a referral to a weightmanagement program. Please speak to us or your family physician aboutavailable programs.AVOID NICOTINE IN ALL FORMSThis includes all tobacco products, whether chewed, smoked, vaped, or rubbed onthe skin. Smoking cessation programs, which can make use of tobaccosubstitutes, medications to suppress cravings and behavior management, areavailable. Please contact your family physician about programs in your area.Ralph Angelo, RN, RN 04/17/2017 9:42 AM SignedCopy of OV note mailed to Mr. Dominique's office.Referring Provider: JARRED DOMINIQUE [[id number]]Allergies As of Date: 04/16/2017(No Known Allergies)Date Reviewed: 04/16/2017Reviewed by: Daisy Seals - Fully AssessedReason for Visit: New Patient [172] Cmt: Heart murmurPrimary Visit Diagnosis:Nonrheumatic aortic valve stenosis [I35.0] Other Visit Diagnosis:WALTERS (dyspnea on exertion) [R06.09]Order(s):ECG B/O W INTERP (MED OFFICE) [ECG06] Order #: [id number] ECHO [[id number]] Order #: [id number]: 1 FUTUREProblem List As Of Date: 04/16/2017(None) Other instructions from your clinician: LIFESTYLE CHANGE A healthy lifestyle is the most important component of your overall treatment plan. Please give serious thought to the following areas and commit to making terminal manager changes. EAT A WHOLE FOOD, PLANT BASED DIET The nutrition your body gets is more important than the medicine you take. What matters most is the overall way you eat. We encourage you to minimize the use of animal products (which include dairy and all meats except fatty fish) and use whole, unprocessed plant foods to provide your protein, vitamins and other nutrients. We have a lot of information to share with you on this topic. We also hold Shared Medical Appointments, where you can come visit with Dr. Conway in the company of other patients and spend over an hour talking about the challenges of changing the way you eat. This is not a diet. It is a way of life that you will keep with you. EXERCISE REGULARLY It is not important to spend hours in the gym, lifting weights and perspiring heavily. A total of 2-3 hours per week of aerobic (causing you to be moderately short of breath) exercise is sufficient to improve your health. Talk to us before you begin a new exercise program, if you have heart disease or experience shortness of breath or chest pain. REDUCE STRESS Chronic emotional and physical stress leads to disease. Ways of reducing stress include meditation, visualization, prayer, yoga and other forms of relaxation therapy. Consistency is the colbert. Find a technique that works for you and do it every day. CULTIVATE RELATIONSHIPS Loneliness and isolation have a major negative impact on health. Seek out others who can love, care for and nurture you. Avoid hurtful relationships. MAINTAIN IDEAL BODY WEIGHT The best way to do this is to do all the things above. Our bodies naturally find the right weight if we keep moving and feed ourselves the right food. If your BMI is greater than 25, we strongly recommend a referral to a weight management program. Please speak to us or your family physician about available programs. AVOID NICOTINE IN ALL FORMS This includes all tobacco products, whether chewed, smoked, vaped, or rubbed on the skin. Smoking cessation programs, which can make use of tobacco substitutes, medications to suppress cravings and behavior management, are available. Please contact your family physician about programs in your area.Visit Notes:>> Ralph (Rn) CHELY Angelo Fri Apr 17, 2017 9:41 AM Status: SignedCopy of OV note mailed to Mr. Dominique's office. Status:Closed by ZORA CONWAY MD on 04/16/17 [facility] PROGRESSon 04-16-2017 PROGRESS HNO ID: [id number] thor: Zora Ortiz: (none)Author Type: PhysicianType: Progress NotesFiled: 04/16/2017 10:14 AMNote Text:PERTINENT CARDIAC HISTORYAortic stenosis - severeADHERENCE TO GUIDELINESACE-I or ARB for HF with prior LVEF<40 (NQF 0081) - N/AASA or Plavix for ASHD (NQF 0067) - N/ABeta ricarda for ASHD with prior RI or prior LVEF<40 (NQF 0070) - N/ABeta ricarda for HF with prior LVEF<40 (NQF 0083) - N/AACE-I or ARB for ASHD with DM or prior LVEF<40 (NQF 0066) - N/AStatin therapy for ASHD or FHL or DM - N/ABMI documented and plan if >25 (NQF 0421) - lifestyle recommendation formTobacco use screening and referral (NQF 0028) - lifestyle recommendationformRecommendation for whole food, plant based diet - lifestyle recommendationformCLINICAL IMPRESSION/PLAN:Ciera Wells has severe aortic stenosis by exam. She has significantsymptoms including presyncope. There is no evidence of decompensated heartfailure.We will proceed with echocardiogram. She is likely near the time when shewill require surgery, based on her LVH and symptoms.She's been advised not to push beyond the development of symptoms. We willobtain the echocardiogram within the next week.She is otherwise healthy and her life expectancy would lead me torecommend an open procedure rather than TAVR, although we will discussthis after her ultrasound. If her stenosis proves to be severe, asexpected, we'll discuss angiography and surgical options.Thank you for asking me to see and make recommendations on Ciera Wells. This report will be mailed and faxed to you.Written and verbal health teaching given to patient, patient verbalizesunderstanding and agrees with treatment plan.This note was generated using [employer] voice recognition system, and theremay be some incorrect words, spellings, and punctuation that were notnoted in checking the note before saving.DIAGNOSIS FOR VISIT:Aortic stenosisHISTORY OF PRESENT ILLNESSCiera Wells is a 76-year-old woman who is seen in consultation at [facility] Dr. Dominique, for recommendations regarding cardiac murmur.She has had a heart murmur for the last several years. She underwentsurgery a few years ago and was told at that time she had a murmur, but nofurther testing was done. She had no complications during the surgery.She has noted decreased exercise tolerance over the last year. She hadheat intolerance this past summer. On one occasion she had a near syncopalepisode while she was mowing her lawn. She's had intermittent tightness inthe chest which is precipitated by exertion. Chest tightness is relievedpromptly when she slows down.She has had no orthopnea. She's had minimal edema. She denies TIAs,amaurosis, claudication, palpitations. She's had no ishmael syncope.She has been relatively healthy and takes no medications.ALLERGIES:ALLERGIESNo Known AllergiesCURRENT OUTPATIENT MEDICATIONS:No prescriptions on file.PAST MEDICAL HISTORYDiagnosis Date- Heart murmur- Skin cancerPAST SURGICAL HISTORYProcedure Laterality Date- SECTION HX 1986- PAST SURGICAL HISTORY OF 2016 Skin cancer removal- ROTATOR CUFF REPAIR 01/2015FAMILY HISTORYProblem Relation Age of Onset- Stroke Mother- Cancer Father- Cancer Brother- Heart SonSocial History Marital status: Spouse name: Years of education: Number of children:Social History Main Topics Smoking status: Never Smoker Smokeless status: Never Used Alcohol use: No Drug use: NoOther Topics ConcernMilitary Service NoREVIEW OF SYSTEMS: General: No chills, fever, weight loss, night sweats. SHEENT: No change in vision or auditory acuity. Respiratory: Noproductive cough. Cardiac: As noted above. GI: No melena. : Nodysuria. Musculoskeletal: No myalgias. Neurologic: No strokes.Psychiatric: No depression. Endocrine: No diabetes. Hematologic: Noanemia.PHYSICAL EXAMINATION: S/he is alert and in no distressVITAL SIGNS: BP 114/72 Pulse 61 Ht 5' 3 (1.60m) Wt 221 lb (100.2kg) BMI 39.16 kg/(m2).SHEENT: Skin is warm and dry. Pupils are round and reactive. Retinalvessels are grossly unremarkable. No xanthelasmas appreciated. Pharynxis benign. There is no oral cyanosis. Neck: supple. No adenopathy orthyroid enlargement. Chest: Clear to percussion and auscultation.Trachea is midline. Air entry is equal. There is no chest walltenderness. Cardiac: Regular rhythm. S1 and S2 are normal. PMI isnondisplaced. There is a 4/6 late peaking systolic ejection murmur whichradiates into both carotids. The murmur decreases with standing andValsalva. S2 is single. Carotid upstrokes are delayed. JVP is less than10 cm. Abdomen: Soft and nontender. Obesity precludes adequateexamination. There are no pulsatile masses or bruits. No liverenlargement. Bowel sounds are active. : Deferred. Extremities: Traceedema. Pulses are intact and symmetrical. No clubbing or cyanosis. Nofemoral bruits. Neurologic: Grossly normal motor and sensory. S/he isalert and oriented x4. Musculoskeletal: No joint deformities.EKG demonstrates sinus rhythm. There is LVH. There is a Q wave in the highlateral leads, which may be related to LVH.No recent labs are available.Electronically Signed:Zora Conway MDNovember 2016 9:38 [facility]: Jarred Molinaler Normal [facility] Vital Signs Date Time Vital Sign Value Performing Clinician Ariellai akbar 12-09-2024 08:130400 Body mass index (BMI) [Ratio] 32.82 kg/m2 Luis Fernando Calix MD Work Phone: [facility] 12-09-2024 08:13040 Body temperature 96.6 [degF] Luis Fernando Calix MD Work Phone: [facility] 12-09-2024 08:130400 Body weight 78.8 kg Luis Fernando Calix MD Work Phone: [facility] 12-09-2024 08:13-0400 Diastolic blood pressure 64 mm[Hg] Luis Fernando Calix MD Work Phone: [facility] 12-09-2024 08:13-0400 Heart rate 60 /min Luis Fernando Calix MD Work Phone: [facility] 12-09-2024 08:13-0400 Respiratory rate 20 /min Luis Fernando Calix MD Work Phone: [facility] 12-09-2024 08:13-0400 SaO2% (BldA) [Mass fraction] 98 % Luis Fernando Calix MD Work Phone: [facility] 12-09-2024 08:130400 Systolic blood pressure 138 mm[Hg] Luis Fernando Calix MD Work Phone: [facility] Encounters Encounter Date Encounter Type Care Provider Facility Start: 05-03-2025 ambulatory Tara Ruiz CLAIMS COORDINATOR Facili ty:[facility] Start: 04-10-2025 End: 04-10-2025 ambulatory Daisy Clark NP Facility:[facility] Start: 03-28-2025 ambulatory Jai Vega Facility:[facility] Start: 12-10-2024 End: 02-09-2025 Follow-up encounter Luis Fernando Calix MD Work Phone: [facility] Start: 12-10-2024 ambulatory JARRED DOMINIQUE Faci lity:[facility] Start: 12-10-2024 End: 12-10-2024 Subsequent hospital visit by physician [facility] Work Phone: Radiology Comment on above: Avulsion of skin of index finger without complication, initial encounter [S61.208A] Start: 12-09-2024 End: 12-09-2024 Patient encounter procedure Luis Fernando Calix MD Work Phone: [facility] Comment on above: Avulsion of skin of index finger without complication, initial encounter (Primary Dx) Start: 12-09-2024 End: 12-09-2024 ambulatory JARRED SHAHZADCIL CATINA Facility:[facility] Start: 10-28-2017 Ambulatory ZORA Roland [facility] Start: 07-30-2017 End: 07-30-2017 [facility] Start: 06-25-2017 End: 06-30-2017 Patient encounter status Luis Fernando Calix MD Work Phone: [facility] Start: 05-25-2017 End: 05-25-2017 Ambulatory ZORA Roland [facility] Start: 04-22-2017 End: 04-22-2017 [facility] Start: 04-16-2017 End: 04-16-2017 [facility] Procedures Date Procedure Procedure Detail Performing Clinician Start: 12-10-2024 Radex fingr minimum 2 views Luis Fernando Calix MD Work Phone: Start: 12-09-2024 Smpl repair scalp/neck/ax/genit/trunk 2.6-7.5cm Luis Fernando Calix MD Work Phone: Plan of Treatment Date Care Activity Detail Author Start: 02-06-2025 Influenza vaccination Influenza Vacc ine (#1) [facility] Start: 06-08-2024 Advance Directive Discussion Advance Directive Discussion [facility] Start: 02-07-2024 Covid-19 Vaccine ( season) Covid-19 Vaccine ( season) [facility] Start: 06-09-2021 Diabetes Screening Diabetes Screenin g [facility] Start: 2017 RSV Vaccine (1 - 1-d ose 75+ series) RSV Vaccine (1 - 1-dose 75+ series) [facility] Start: 2007 Screening for osteoporosis Bone Density Screening [facility] Start: 1992 Pneumococcal Vaccine : 50+ (1 of 1 - PCV) Pneumococcal Vaccine: 50+ (1 of 1 - PCV) [facility] Start: 1992 Shingrix Vaccine (1 of 2) Shingrix Vaccine (1 of 2) [facility] Start: 1961 Urine microalbumin profile DTaP,Tdap,Td Vaccine (1 - Tdap) [facility] Start: 1960 Anxiety Screening Anxiety Screening [facility] Start: 1960 Depression Screening Depression Scre ening [facility] End: 01-08-2026 XR Finger - right AP and Lateral and oblique XR DIGIT GENERAL 3V FRONTAL/LAT/OBL RIGHT Radiology STAT Avulsion of skin of index finger without complication, initial encounter 1 Occurrences starting 12/09/2024 until 01/08/2026 [facility] Work Phone: Comment on above: 1 Occurrences starti ng 12/09/2024 until 01/08/2026 Payers Date Payer Category Payer Self-pay 2018 Private Health Insurance [id number] 2018 Unknown [id number] Unknown [id number] Unknown [id number] Unknown [id number] Social History Date Type Detail Facility Start: 04-16-2017 Tobacco smoking stat [facility] Never smoked tobacco [facility] Start: 04-16-2017 Tobacco use and exposure Smoke less tobacco non-user [facility] Start: 12-09-2024 Alcoholic beverage intake Curr ent non-drinker of alcohol (finding) [facility] Start: 05-15-2020 End: 12-09-2024 History of Social function [facility] Start: 05-15-2020 End: 12-09-2024 Tobacco use panel [facility] Start: 03-20-2017 National Score (1-10 0), lower number is lower risk Not on file [facility] Start: 1940 Sex assigned at Not on file [facility] Medical Equipment Procedure Code Equipment Code Equipment Origin al Text Equipment Identifier Dates Manson Thk1.65mm P tfe 4x.5in Cardiovascular Sterile - [id number] Start: 06-26-2017 Manson Thk1.65mm P tfe 4x.5in Cardiovascular Sterile - [id number] Start: 06-26-2017 Valve Aort 21mm Crp-Ed Thfx - [id number] Start: 06-26-2017 Comment on above: Description: aortic valve replacement Functional Status Date Assessment Result Facility 07-02-2017 Are you deaf, or do you have serious difficulty hearing No 07/02/2017 10:48 AM Laverne Winslow RN No [facility] 07-02-2017 Are you blind, or do you have serious difficulty seeing, even when wearing glasses No 07/02/2017 10:48 AM Laverne Winslow, CHELY No [facility] 07-02-2017 Do you have serious difficulty walking or climbing stairs No 07/02/2017 10:48 AM Laverne Winslow, CHELY No [facility] 07-02-2017 Do you have difficul ty dressing or bathing No 07/02/2017 10:48 AM Laverne Winslow, CHELY No [facility] 07-02-2017 Because of a physica l, mental, or emotional condition, do you have difficulty doing errands alone such as visiting a physician's office or shopping No 07/02/2017 10:48 AM Laverne Winslow RN No [facility] Mental Status Date Assessment Result Facility 07-02-2017 Because of a physica l, mental, or emotional condition, do you have serious difficulty concentrating, remembering, or making decisions No 07/02/2017 10:48 AM Laverne Winslow, CHELY No [facility] History of Present illness Narrative 12-10-2024 Rosa Deshpande, RT(R) - 12/10/2024 8:10 AM EDT Note Date & Type Note Facility 12-10-2024 History of Presen t illness Narrative Radiology Service Progress Note PATIENT NAME: Ciera Wells DATE OF SERVICE: December 10, 2024 TIME: 8:08 AM PATIENT IDENTITY VERIFICATION COMPLETED USING TWO (2) IDENTIFIERS: Name and Date of confirmed by patient verbally. FALL SCREENING: Has the patient had 2 falls in the last year or 1 fall with injury or currently using an Ambulatory Assistive Device (Walker, Cane, Wheelchair, Crutches, etc.)? No PATIENT GENDER DATA: Assigned female at . status: : No status: NO. PATIENT RELEVANT IMPLANT DATA REVIEWED: Not Applicable PATIENT PRESENTS WITH AN IMPLANTABLE OR ATTACHED SUPERVISOR DIE CASTING: No RADIOLOGY DEPARTMENT: General X-ray: Exam(s) Completed: Upper Extremity X-Ray(s): Fingers/Thumb, right PERIPHERAL IV DATA: Not applicable SIGNED BY: RT Pilar(R) December 10, 2024 8:08 AM documented in this encounter [facility] Progress note 12-10-2024 Note Date & Type Note Facility 12-10-2024 Note HNO ID: [id number] Author: ROSA DESHPANDE RT (R) Service: Radiology Author Type: Technologist Type: Progress Notes Filed: 12/10/2024 08:17 Note Text: Radiology Service Progress Note PATIENT NAME: Ciera Wells DATE OF SERVICE: December 10, 2024 TIME: 8:08 AM PATIENT IDENTITY VERIFICATION COMPLETED USING TWO (2) IDENTIFIERS: Name and Date of confirmed by patient verbally. FALL SCREENING: Has the patient had 2 falls in the last year or 1 fall with injury or currently using an Ambulatory Assistive Device (Walker, Cane, Wheelchair, Crutches, etc.)? No PATIENT GENDER DATA: Assigned female at . status: : No status: NO. PATIENT RELEVANT IMPLANT DATA REVIEWED: Not Applicable PATIENT PRESENTS WITH AN IMPLANTABLE OR ATTACHED SUPERVISOR DIE CASTING: No RADIOLOGY DEPARTMENT: General X-ray: Exam(s) Completed: Upper Extremity X-Ray(s): Fingers/Thumb, right PERIPHERAL IV DATA: Not applicable SIGNED BY: RT Pilar(R) December 10, 2024 8:08 AM [facility] Clinical Note 12-09-2024 Note Date & Type Note Facility 12-09-2024 Note Luis Fernando Calix M D 12/09/2024 10:46 AM Laceration Procedure: right index finger Date/Time: 12/09/2024 9:28 AM Performed by: Luis Fernando Calix MD Authorized by: Luis Fernando Calix MD Informed Consent Consent Obtained: Verbal [place] Protocol A moment to CARE was completed. SIGN IN Personnel directly involved with the procedure wore the appropriate PPE. Special Equipment: N/A Patient/Surrogate Stated/Verified: Patient name, Date of , Relevant allergies and Intended procedure TIME OUT Medications required for procedure verified. Laceration Repair Body area: upper extremity Location details: right index finger Laceration length: 5 cm Foreign bodies: no foreign bodies Tendon involvement: none Nerve involvement: superficial Vascular damage: no Irrigation solution: saline Irrigation method: syringe Amount of cleaning: standard Debridement: none Degree of undermining: none Skin closure: Ethilon (5-0) Number of sutures: 3 Approximation: loose Approximation difficulty: simple Dressing: antibiotic ointment, non-adhesive packing strip, gauze roll and splint Patient tolerance: patient tolerated the procedure well with no immediate complications SIGN OUT No specimen collected. All instruments, equipment, possible retained foreign bodies accounted for. The post-procedure POC has been communicated to the patient or surrogate. Medications: 60 mg lidocaine 20 mg/mL (2 %) [facility] Progress note 12-09-2024 Note Date & Type Note Facility 12-09-2024 Note HNO ID: [id number] Author: LUIS FERNANDO CLAIX MD Service: ? Author Type: Physician Type: Progress Notes Filed: 12/09/2024 10:46 Note Text: [facility] Subjective Ciera Wells is a 84 year old female. Patient presents with: Trauma: Got right hand pointer finger stuck in washer ringer x 1 day Patient got her right index finger caught in a closed finger last night. She has loose skin at the fingertip she thinks needs to be removed. She has washed the finger and dressed it with some cream and jelly. She cannot bend the tip of her finger because of the dressing but only notices pain when applying the gels. Current blood thinner is aspirin. Trauma Review of Systems Objective BP 138/64 Pulse 60 Temp (!) 35.9 ?C (96.6 ?F) Resp 20 Wt 78.8 kg (173 lb 11.6 oz) SpO2 98% BMI 32.82 kg/m? Physical Exam Constitutional: General: She is not in acute distress. Comments: Accompanied by her daughter. Musculoskeletal: Hands: Comments: Scswn-[id number]-[id number]. 5 cm Y-shaped laceration avulsion from degloving injury. Laceration originates at the thenar DIP joint return extends to the palmar aspect. There is avulsion of tissue from the ulnar aspect of the lateral nail fold to the mid middle phalange. White severed 1 mm presumed nerve present in the avulsion on the ulnar aspect of the DIP joint. Normal strength with flexion and extension at the DIP and PIP joints. No laxity with varus or valgus strain of the DIP joint. Neurological: Mental Status: She is alert. {ASSESSMENT/PLAN: 1. Avulsion of skin of index finger without complication, initial encounter - ICD9: 883.0, ICD10: S61.208A I was able to reapproximate 3 cm of wound on the ulnar aspect of the index finger. The residual finger pad was edematous but had good perfusion. - XR DIGIT GENERAL 3V FRONTAL/LAT/OBL RIGHT -x-ray is not available today. Patient will return tomorrow for imaging to rule out fracture. - CEPHALEXIN 500 MG CAPSULE for possible open fracture. Advised to schedule follow-up with wound care at the [facility]. Change dressing daily. Seek re-evaluation for sign of infection such as spreading redness, warmth, pus-like discharge, increasing pain, or fever. Advised suture removal in 1-2 weeks-preferably through wound care clinic. Luis Fernando Calix MD Differential Diagnoses - Degloving injury of right index finger Laceration Procedure: right index finger Date/Time: 12/09/2024 9:28 AM Performed by: Luis Fernando Calix MD Authorized by: Luis Fernando Calix MD Informed Consent Consent Obtained: Verbal [place] Protocol A moment to CARE was completed. SIGN IN Personnel directly involved with the procedure wore the appropriate PPE. Special Equipment: N/A Patient/Surrogate Stated/Verified: Patient name, Date of , Relevant allergies and Intended procedure TIME OUT Medications required for procedure verified. Laceration Repair Body area: upper extremity Location details: right index finger Laceration length: 5 cm Foreign bodies: no foreign bodies Tendon involvement: none Nerve involvement: superficial Vascular damage: no Irrigation solution: saline Irrigation method: syringe Amount of cleaning: standard Debridement: none Degree of undermining: none Skin closure: Ethilon (5-0) Number of sutures: 3 Approximation: loose Approximation difficulty: simple Dressing: antibiotic ointment, non-adhesive packing strip, gauze roll and splint Patient tolerance: patient tolerated the procedure well with no immediate complications SIGN OUT No specimen collected. All instruments, equipment, possible retained foreign bodies accounted for. The post-procedure POC has been communicated to the patient or surrogate. Medications: 60 mg lidocaine 20 mg/mL (2 %) [facility] History of Present illness Narrative 12-09-2024 Luis Fernando Calix MD - 12/09/2024 9:22 AM EDT Note Date & Type Note Facility 12-09-2024 History of Presen t illness Narrative Associated Order(s): Laceration Procedure: right index finger Post-Procedure Diagnose(s): Avulsion of skin of index finger without complication, initial encounter Images from the original note were not included. [facility] Subjective Ciera Wells is a 84 year old female. Patient presents with: Trauma: Got right hand pointer finger stuck in washer ringer x 1 day Patient got her right index finger caught in a closed finger last night. She has loose skin at the fingertip she thinks needs to be removed. She has washed the finger and dressed it with some cream and jelly. She cannot bend the tip of her finger because of the dressing but only notices pain when applying the gels. Current blood thinner is aspirin. Trauma Review of Systems Objective BP 138/64 Pulse 60 Temp (!) 35.9 C (96.6 F) Resp 20 Wt 78.8 kg (173 lb 11.6 oz) SpO2 98% BMI 32.82 kg/m Physical Exam Constitutional: General: She is not in acute distress. Comments: Accompanied by her daughter. Musculoskeletal: Hands: Comments: [id number]. 5 cm Y-shaped laceration avulsion from degloving injury. Laceration originates at the thenar DIP joint return extends to the palmar aspect. There is avulsion of tissue from the ulnar aspect of the lateral nail fold to the mid middle phalange. White severed 1 mm presumed nerve present in the avulsion on the ulnar aspect of the DIP joint. Normal strength with flexion and extension at the DIP and PIP joints. No laxity with varus or valgus strain of the DIP joint. Neurological: Mental Status: She is alert. {ASSESSMENT/PLAN: 1. Avulsion of skin of index finger without complication, initial encounter - ICD9: 883.0, ICD10: S61.208A I was able to reapproximate 3 cm of wound on the ulnar aspect of the index finger. The residual finger pad was edematous but had good perfusion. - XR DIGIT GENERAL 3V FRONTAL/LAT/OBL RIGHT -x-ray is not available today. Patient will return tomorrow for imaging to rule out fracture. - CEPHALEXIN 500 MG CAPSULE for possible open fracture. Advised to schedule follow-up with wound care at the [facility]. Change dressing daily. Seek re-evaluation for sign of infection such as spreading redness, warmth, pus-like discharge, increasing pain, or fever. Advised suture removal in 1-2 weeks-preferably through wound care clinic. Luis Fernando Calix MD Differential Diagnoses - Degloving injury of right index finger Laceration Procedure: right index finger Date/Time: 12/09/2024 9:28 AM Performed by: Luis Fernando Calix MD Authorized by: Luis Fernando Calix MD Informed Consent Consent Obtained: Verbal [place] Protocol A moment to CARE was completed. SIGN IN Personnel directly involved with the procedure wore the appropriate PPE. Special Equipment: N/A Patient/Surrogate Stated/Verified: Patient name, Date of , Relevant allergies and Intended procedure TIME OUT Medications required for procedure verified. Laceration Repair Body area: upper extremity Location details: right index finger Laceration length: 5 cm Foreign bodies: no foreign bodies Tendon involvement: none Nerve involvement: superficial Vascular damage: no Irrigation solution: saline Irrigation method: syringe Amount of cleaning: standard Debridement: none Degree of undermining: none Skin closure: Ethilon (5-0) Number of sutures: 3 Approximation: loose Approximation difficulty: simple Dressing: antibiotic ointment, non-adhesive packing strip, gauze roll and splint Patient tolerance: patient tolerated the procedure well with no immediate complications SIGN OUT No specimen collected. All instruments, equipment, possible retained foreign bodies accounted for. The post-procedure POC has been communicated to the patient or surrogate. Medications: 60 mg lidocaine 20 mg/mL (2 %) documented in this encounter [facility] Instructions 12-09-2024 Patient Instructions Note Date & Type Note Facility 12-09-2024 Instructions Luis Fernando Calix MD - 12/09/2024 8:46 AM EDT Call [facility] at [phone]. documented in this encounter [facility] Evaluation note Note Date & Type Note Facility Evaluation note Diagnosis Avulsion of skin of index finger without complication, initial encounter- Primary documented in this encounter [facility] Evaluation note Note Date & Type Note Facility Evaluation note Diagnosis Avulsion of skin of index finger without complication, initial encounter documented in this encounter [facility] Reason for visit Narrative Diagnostic Procedure Only (Urgent) - Pending Review Note Date & Type Note Facility Reason for visit Narrative Specialty Diagnoses / Procedures Referred By Contac t Referred To Contact [facility] Diagnoses Avulsion of skin of index finger without complication, initial encounter Procedures XR DIGIT GENERAL 3V FRONTAL/LAT/OBL RIGHT RADEX FINGR MINIMUM 2 VIEWS Luis Fernando Calix MD [address] [place] [address] Phone: tel: fax: [place] [id number] Referral ID Status Reason Start Date Expiration Date Visits Requested Visits Authorized [id number] Pending Review Auto-Generat ed Referral 12/09/2024 01/08/2026 1 1 [facility] Summary Purpose Family History No Family History Records FoundNo Family History Records FoundNo Family History Records FoundNo Family History Records Found Advance Directives No Advanced Directives Records FoundNo Advanced Directives Records FoundNo Advanced Directives Records FoundNo Advanced Directives Records Found Additional Source Comments INFORMATION SOURCE (unrecogn ized section and content) DATE CREATED AUTHOR 11/25/2017 [facility] DATE CREATED AUTHOR AUTHOR'S ORGANIZ ATION 11/25/2017 [facility] DATE CREATED AUTHOR AUTHOR'S ORGANIZ ATION 12/11/2024 [facility] DATE CREATED AUTHOR AUTHOR'S ORGANIZ ATION 04/19/2025 [facility] Source Comments (unrecognize d section and content) In the event this informatio n is protected by the Federal Confidentiality of Alcohol and Drug Abuse Patient Records regulations: The Federal rules restrict any use of the information to criminally investigate or prosecute any alcohol or drug abuse patient.[facility] the event this information is protected by the Federal Confidentiality of Alcohol and Drug Abuse Patient Records regulations: The Federal rules restrict any use of the information to criminally investigate or prosecute any alcohol or drug abuse patient.[facility] the event this information is protected by the Federal Confidentiality of Alcohol and Drug Abuse Patient Records regulations: The Federal rules restrict any use of the information to criminally investigate or prosecute any alcohol or drug abuse patient.[facility] Reason for Visit (unrecogniz ed section and content) Reason Comments Trauma Got right hand point er finger stuck in washer ringer x 1 day Care Teams (unrecognized sec tion and content) Principal Software Engineer Relationship Specialty [place] [address] [address] PCP - General Internal Medicine 03/20/17 Julia Martin MD [address] [place] [address] Primary Staff Physician Cardiology 08/24/18 Principal Software Engineer Relationship Specialty Start [place] [address] [address] PCP - General Internal Medicine 03/20/17 Julia Martin MD [address] [place] [address] Primary Staff Physician Cardiology 08/24/18 Principal Software Engineer Relationship Specialty Start [place] [address] [address] PCP - General Internal Medicine 03/20/17 Julia Martin MD [address] [place] [address] Primary Staff Physician Cardiology 08/24/18 FOR RECORDS PERTAINING TO PATIENTS WHO ARE OR HAVE BEEN ENROLLED IN A CHEMICAL DEPENDENCY/SUBSTANCEABUSE PROGRAM, SOME INFORMATION MAY BE OMITTED. This clinical summary was aggregated from multiple sources. Caution should be exercised in using it in the provision of clinical care. This summary normalizes information from multiple sources, and as a consequence, information in this document may materially change the coding, format and clinical context of patient data. In addition, data may be omitted in some cases. CLINICAL DECISIONS SHOULD BE BASED ON THE PRIMARY CLINICAL RECORDS. [facility] provides no warranty or guarantee of the accuracy or completeness of information in this document.
== END | disposition home or self-care (01) ==
PROVIDERS: PCP Nurse Practitioner Family; Referring Provider Nurse Practitioner Gerontology; Visit Provider Nurse Practitioner Gerontology
DX: Z95.2 Presence of prosthetic heart valve (principal)
CPT/HCPCS: 93306